=== PATIENT | female | born 1930 | race Caucasian/White ===

== ENCOUNTER 2017-07-03 18:24 | Inpatient (IN) | payer MEDICARE, OTHER ==
[~2017-07-03] VITALS: Ht 167.6 cm; Wt 77.9 kg
[2017-07-03] MEDS: PRAVASTATIN SOD 40 MG TAB PO SCH (09:00)
[~2017-07-03 18:24] MED LIST: AMOX200S8 PO; AUGM PO; CART180C4 PO; COUM5TAB PO; DILA2TAB4 PO; DIOV160T60 PO; FEMA2.5T PO; KLOR20TA6 PO; LEVEMIR SQ; METATAB; METO10TA PO; METR-1 PO; NADO1TAB16 PO; NOVOLOGP2 SQ; PREV30CA36 PO; SIMV20 PO; TRIA37.512 PO
[2017-07-03 18:29] VITALS: TEMP 97.5
[2017-07-03 18:37] VITALS: BP 131/97; PULSE 107; RESP 20; O2SAT 97
[2017-07-03] MEDS ORDERED: WARF-23 PO (18:44)
[2017-07-03] MEDS ORDERED: NOVOLOGP2 SQ (18:44)
[2017-07-03] MEDS ORDERED: DIOV160T6 PO (18:44)
--- NOTE | 2017-07-03 18:58 | PD ---
HPI Chief Complaint: Fall Time Seen by Provider: 18:55 Travel History International Travel<30 days: No Contact w/Intl Traveler<30days: No Traveled to known affect area: No History of Present Illness HPI 86-year-old female with history of CAD, pacemaker placement, AVR, diabetes, breast cancer in remission, presents to the emergency department for evaluation following a fall. Patient states that she tripped and fell at her home 2 days ago. She struck her head. She has been on the floor for 2 days until her neighbors discovered her today when her niece a r collections rep had not been picked up. Patient reports severe right hip and thigh pain. She reports significant neck pain. Pain is a 6 out of 10. She denies any focal deficits or weakness. She has not been recently ill. She denies any chest or tightness. No shortness of breath. No abdominal pain, nausea, vomiting. She has no other symptoms to report at this time. PFSH Past Medical History Cancer: Yes (BREAST) Diabetes: Yes Patient Takes Glucophage: No Diminished Hearing: No Gastrointestinal Disorders: Yes (ESOPHAGEAL BURN FROM RADIATION POST CANCER) Radiation Therapy: Yes Past Surgical History Cardiac Surgery: Yes (PACEMAKER, ARTIFICIAL AORTIC VALVE) Cholecystectomy: Yes (LAST WEEK) Endocrine Surgery: Yes (RIGHT LUMPECTOMY 2002) Pacemaker: Yes Social History Alcohol Use: No Tobacco Use: No Substance Use: No Allergies-Medications (Allergen,Severity, Reaction): Coded Allergies: oxycodone (Unverified Allergy, Severe, Rash, 01/06/17) phytonadione (vitamin K1) (Unverified Allergy, Severe, SOB FLUSH ALL OVER AND TIGHTNESS IN CHEST, 01/06/17) Reported Meds & Prescriptions Reported Meds & Active Scripts Active Reported Novolog Inj (Insulin Aspart) 1,000 Unit/10 Ml Vial 0 SQ DIRECTED Sliding Scale as directed. Diovan (Valsartan) 160 Mg Tab 160 Mg PO DAILY Warfarin 5 Mg Tab 5 Mg PO DAILY [Levemir] 44 Unit SQ HS [Levemir] 36 Unit SQ DAILY [Metanx] Review of Systems Except as stated in HPI: all other systems reviewed are Neg Physical Exam Narrative GENERAL: Well-nourished elderly female patient, lying in bed in no acute distress. SKIN: Focused skin assessment warm/dry. Most is over the mid anterior lateral thigh. There is also some ecchymosis across the abdomen. Patient has abrasion to the medial right knee. HEAD: Atraumatic. Normocephalic. EYES: Pupils equal and round. No scleral icterus. No injection or drainage. ENT: No nasal bleeding or discharge. Mucous membranes pink and dry NECK: Trachea midline. No JVD. Cervical collar is in place. CARDIOVASCULAR: Regular rate and rhythm. RESPIRATORY: No accessory muscle use. Diminished.. Breath sounds equal bilaterally. GASTROINTESTINAL: Abdomen soft, non-tender, nondistended. Hepatic and splenic margins not palpable. MUSCULOSKELETAL: No obvious deformities. No clubbing. No cyanosis. No edema. Shortening of the right lower extremity. Distal pulses are palpable. Cap refills within normal limits. No spinal tenderness. NEUROLOGICAL: Awake and alert. No obvious cranial nerve deficits. Motor grossly within normal limits. Normal speech. PSYCHIATRIC: Appropriate mood and affect; insight and judgment normal. Data Data Last Documented VS Vital Signs Date Time Temp Pulse Resp B/P (MAP) Pulse Ox O2 Delivery O2 Flow Rate FiO2 07/03/17 18:37 107 20 131/97 (108) 97 Room Air 07/03/17 18:29 97.5 Orders Orders Electrocardiogram (07/03/17 18:55) Basic Metabolic Panel (Bmp) (07/03/17 18:55) Ckmb (Isoenzyme) Profile (07/03/17 18:55) Complete Blood Count With Diff (07/03/17 18:55) Magnesium (Mg) (07/03/17 18:55) Prothrombin Time / Inr (Pt) (07/03/17 18:55) Act Partial Throm Time (Ptt) (07/03/17 18:55) Troponin I (07/03/17 18:55) Chest, Single Ap (07/03/17 18:55) Ecg Monitoring (07/03/17 18:55) Bilateral Bp Monitoring (07/03/17 18:55) Iv Access Insert/Monitor (07/03/17 18:55) Oximetry (07/03/17 18:55) Oxygen Administration (07/03/17 18:55) Morphine Inj (Morphine Inj) (07/03/17 19:00) Sodium Chloride 0.9% Flush (Ns Flush) (07/03/17 19:00) Sodium Chlorid 0.9% 500 Ml Inj (Ns 500 M (07/03/17 19:00) Ondansetron Inj (Zofran Inj) (07/03/17 19:00) Ct Brain W/O Iv Contrast(Rout) (07/03/17 ) Ct Cerv Spine W/O Contrast (07/03/17 ) Femur (Ap & Lat/2vws) (07/03/17 ) Creatine Kinase (Cpk) (07/03/17 18:55) Urinalysis - C+S If Indicated (07/03/17 19:06) Urinary Catheter Insert/Apply (07/03/17 19:06) Ct Hip W/O Contrast (07/03/17 ) Hip, Ap Only W Ap Pelvis (07/03/17 ) Acetaminophen 1000 Mg/100 Ml (Ofirmev 10 (07/03/17 20:00) CKMB (07/03/17 18:55) CKMB% (07/03/17 18:55) Ceftriaxone Inj (Rocephin Inj) (07/03/17 20:30) Azithromycin Inj (Zithromax Inj) (07/03/17 20:30) Ns (Bolus) Inj (07/03/17 20:30) Labs Laboratory Tests Test 07/03/17 18:55 White Blood Count 13.6 TH/MM3 Red Blood Count 3.74 MIL/MM3 Hemoglobin 11.2 GM/DL Hematocrit 32.8 % Mean Corpuscular Volume 87.7 FL Mean Corpuscular Hemoglobin 29.8 PG Mean Corpuscular Hemoglobin Concent 34.0 % Red Cell Distribution Width 16.5 % Platelet Count 149 TH/MM3 Mean Platelet Volume 8.8 FL Neutrophils (%) (Auto) 79.3 % Lymphocytes (%) (Auto) 8.2 % Monocytes (%) (Auto) 12.2 % Eosinophils (%) (Auto) 0.1 % Basophils (%) (Auto) 0.2 % Neutrophils # (Auto) 10.8 TH/MM3 Lymphocytes # (Auto) 1.1 TH/MM3 Monocytes # (Auto) 1.7 TH/MM3 Eosinophils # (Auto) 0.0 TH/MM3 Basophils # (Auto) 0.0 TH/MM3 CBC Comment DIFF FINAL Differential Comment Prothrombin Time 13.6 SEC Prothromb Time International Ratio 1.3 RATIO Activated Partial Thromboplast Time 25.6 SEC Blood Urea Nitrogen 25 MG/DL Creatinine 0.89 MG/DL Random Glucose 174 MG/DL Calcium Level 9.5 MG/DL Magnesium Level 2.2 MG/DL Sodium Level 142 MEQ/L Potassium Level 3.5 MEQ/L Chloride Level 105 MEQ/L Carbon Dioxide Level 29.0 MEQ/L Anion Gap 8 MEQ/L Estimat Glomerular Filtration Rate 60 ML/MIN Total Creatine Kinase 246 U/L Creatine Kinase MB 3.0 NG/ML Creatine Kinase MB % 1.2 % Troponin I LESS THAN 0.02 NG/ML MDM Medical Decision Making Medical Screen Exam Complete: Yes Emergency Medical Condition: Yes Medical Record Reviewed: Yes Differential Diagnosis Fracture versus contusion versus sprain versus dislocation versus electrolyte abnormality versus intracranial hemorrhage versus rhabdo Narrative Course 86 old female presents to emergency department following a trip and fall that occurred 2 days ago. The patient has laid on her floor for the last 2 days. She appears nontoxic but dry. Her lips are crusted. She has bruising of the right thigh with shortening of the right lower extremity. She reports severe hip and neck pain. Patient is treated for pain but requests only Tylenol. This is given IV. Patient has urine all over her body. Her skin remains intact on the buttocks and back. Patient is given IV fluids. Laboratory Tests Test 07/03/17 18:55 White Blood Count 13.6 TH/MM3 Red Blood Count 3.74 MIL/MM3 Hemoglobin 11.2 GM/DL Hematocrit 32.8 % Mean Corpuscular Volume 87.7 FL Mean Corpuscular Hemoglobin 29.8 PG Mean Corpuscular Hemoglobin Concent 34.0 % Red Cell Distribution Width 16.5 % Platelet Count 149 TH/MM3 Mean Platelet Volume 8.8 FL Neutrophils (%) (Auto) 79.3 % Lymphocytes (%) (Auto) 8.2 % Monocytes (%) (Auto) 12.2 % Eosinophils (%) (Auto) 0.1 % Basophils (%) (Auto) 0.2 % Neutrophils # (Auto) 10.8 TH/MM3 Lymphocytes # (Auto) 1.1 TH/MM3 Monocytes # (Auto) 1.7 TH/MM3 Eosinophils # (Auto) 0.0 TH/MM3 Basophils # (Auto) 0.0 TH/MM3 CBC Comment DIFF FINAL Differential Comment Prothrombin Time 13.6 SEC Prothromb Time International Ratio 1.3 RATIO Activated Partial Thromboplast Time 25.6 SEC Blood Urea Nitrogen 25 MG/DL Creatinine 0.89 MG/DL Random Glucose 174 MG/DL Calcium Level 9.5 MG/DL Magnesium Level 2.2 MG/DL Sodium Level 142 MEQ/L Potassium Level 3.5 MEQ/L Chloride Level 105 MEQ/L Carbon Dioxide Level 29.0 MEQ/L Anion Gap 8 MEQ/L Estimat Glomerular Filtration Rate 60 ML/MIN Total Creatine Kinase 246 U/L Creatine Kinase MB 3.0 NG/ML Creatine Kinase MB % 1.2 % Troponin I LESS THAN 0.02 NG/ML Last Impressions Chest X-Ray 07/03/175 Signed Impressions: Service Date/Time: Monday, July 03, 2017 19:17 - CONCLUSION: 1. There appears to be an infiltrate in the left lower lung. Chronic interstitial changes are seen bilaterally 2. Diffuse cardiomegaly 3. Prominence of the ascending thoracic aorta. Recommend a noncontrast CT thorax on a nonemergent basis. Vasiliy Baez MD Lower Extremity CT 07/03/17 0000 Signed Impressions: Service Date/Time: Monday, July 03, 2017 19:36 - CONCLUSION: Comminuted fracture through the trochanteric region of the proximal right femur. Vasiliy Baez MD Hip and Pelvis X-Ray 07/03/17 0000 Signed Impressions: Service Date/Time: Monday, July 03, 2017 19:10 - CONCLUSION: There is oblique fracture through the trochanter region of the right femur along with a fracture involving the lesser trochanter. Vasiliy Baez MD Head CT 07/03/17 0000 Signed Impressions: Service Date/Time: Monday, July 03, 2017 19:31 - CONCLUSION: 1. No acute intracranial hemorrhage. 2. Bilateral cortical atrophy and chronic white matter changes characteristic for patient's age. Vasiliy Baez MD Femur X-Ray 07/03/17 0000 Signed Impressions: Service Date/Time: Monday, July 03, 2017 19:16 - CONCLUSION: Oblique fracture involving the trochanteric region of the proximal right femur. Vasiliy Baez MD Cervical Spine CT 07/03/17 0000 Signed Impressions: Service Date/Time: Monday, July 03, 2017 19:31 - CONCLUSION: 1. Nondisplaced fracture at the base of the dens with extension of the fracture into the left body of C2 and into the left transverse process of C2. 2. Diffuse osteopenia and degenerative changes with disc degeneration and disc space narrowing throughout the entire cervical spine. Vasiliy Baez MD Findings are reviewed. I have placed a call to neurosurgery and orthopedic surgery. Patient is given IV Rocephin and azithromycin for her left lower lobe infiltrate. Diagnosis Primary Impression: Cervical spine fracture Qualified Codes: S12.001A - Unspecified nondisplaced fracture of first cervical vertebra, initial encounter for closed fracture Additional Impressions: Closed right hip fracture Qualified Codes: S72.001A - Fracture of unspecified part of neck of right femur, initial encounter for closed fracture Pneumonia Qualified Codes: J18.1 - Lobar pneumonia, unspecified organism Dehydration Fall Qualified Codes: W19.XXXA - Unspecified fall, initial encounter Admitting Information Admitting Physician Requests: Admit Condition: Stable Mary Kate Cochran Jul 03, 2017 18:58
[2017-07-03] MEDS ORDERED: ONDANSETRON HCL 4 MG/2 ML VIAL IV PUSH ONE (19:00)
[2017-07-03] MEDS ORDERED: SODIUM CHLORID 0.9% 500 ML INJ 500 ML IV ONE ×2 (19:00→20:30)
[2017-07-03] MEDS ORDERED: MORPHINE SULFATE 4 MG/ML INJ IV PUSH ONE (19:00)
[2017-07-03] MEDS ORDERED: SODIUM CHLORIDE 0.9% FLUSH 10 ML FLUSH IVF PRN (19:00)
[2017-07-03 19:39] LABS: AUTOMATED NEUTROPHIL # 10.8 TH/MM3 (1.8-7.7); BASOPHIL % 0.2 % (0.0-2.0); EOSINOPHIL % 0.1 % (0.0-4.0); HEMATOCRIT 32.8 % (35.0-46.0); HEMOGLOBIN 11.2 GM/DL (11.6-15.3); LYMPH % 8.2 % (9.0-44.0); LYMPHOCYTE # 1.1 TH/MM3 (1.0-4.8); MEAN CELL VOLUME 87.7 FL (80.0-100.0); MEAN CORPUSCULAR HEMOGLOBIN 29.8 PG (27.0-34.0); MEAN PLATELET VOLUME 8.8 FL (7.0-11.0); MONO % 12.2 % (0.0-8.0); MONOCYTE # 1.7 TH/MM3 (0-0.9); NEUT % 79.3 % (16.0-70.0); PLATELET COUNT 149 TH/MM3 (150-450); RED BLOOD COUNT 3.74 MIL/MM3 (4.00-5.30); RED CELL DISTRIBUTION WIDTH 16.5 % (11.6-17.2); WHITE BLOOD COUNT 13.6 TH/MM3 (4.0-11.0)
[2017-07-03 19:42] LABS: INTERNATIONAL NORMALIZED RATIO 1.3 RATIO; PROTHROMBIN TIME - PATIENT 13.6 SEC (9.8-11.6)
--- NOTE | 2017-07-03 19:42 | RADRPT ---
EXAM DATE/TIME: 07/03/2017 19:31 [facility] COMPARISON: No previous studies available for comparison. INDICATIONS : Head pain due to fall. RADIATION DOSE: 69.15 CTDIvol (mGy) MEDICAL HISTORY : Cardiovascular disease. Diabetes mellitus type 2. SURGICAL HISTORY : Pacemaker. Cholecystectomy. ENCOUNTER: Initial ACUITY: 1 day PAIN SCALE: 10/10 LOCATION: Bilateral cranial TECHNIQUE: Multiple contiguous axial images were obtained of the head. Using automated exposure control and adj ustment of the mA and/or kV according to patient size, radiation dose was kept as low as reasonably a chievable to obtain optimal diagnostic quality images. DICOM format image data is available electro nically for review and comparison. FINDINGS: CEREBRUM: The ventricles are normal for age. There is bilateral cortical atrophy and chronic white matter calderon es. No evidence of midline shift, mass lesion, hemorrhage or acute infarction. No extra-axial fluid collections are seen. POSTERIOR FOSSA: The cerebellum and brainstem are intact. The 4th ventricle is midline. The cerebellopontine angle i s unremarkable. EXTRACRANIAL: The visualized portion of the orbits is intact. SKULL: The calvaria is intact. No evidence of skull fracture. CONCLUSION: 1. No acute intracranial hemorrhage. 2. Bilateral cortical atrophy and chronic white matter changes characteristic for patient's age. Vasiliy Baez MD on July 03, 2017 at 19:39 Board Certified Radiologist. This report was verified electronically.
[2017-07-03 19:48] LABS: BLOOD UREA NITROGEN 25 MG/DL (7-18); CALCIUM 9.5 MG/DL (8.5-10.1); CHLORIDE 105 MEQ/L (98-107); CREATININE 0.89 MG/DL (0.50-1.00); GLOMERULAR FILTRATION RATE 60 ML/MIN (>89); GLUCOSE,RANDOM 174 MG/DL (74-106); MAGNESIUM 2.2 MG/DL (1.5-2.5); SODIUM (NA) 142 MEQ/L (136-145)
[2017-07-03 19:52] LABS: TROPONIN I LESS THAN 0.02 NG/ML (0.02-0.05)
--- NOTE | 2017-07-03 19:53 | RADRPT ---
EXAM DATE/TIME: 07/03/2017 19:16 [facility] COMPARISON: No previous studies available for comparison. INDICATIONS : Right proximal femur pain post fall 2 days ago MEDICAL HISTORY : None. SURGICAL HISTORY : None. ENCOUNTER: Initial ACUITY: 2 days PAIN SCORE: 10/10 LOCATION: Right proximal femur FINDINGS: There is a fracture through the trochanteric region of the proximal right femur. There is a fracture involving the lesser trochanter. The midshaft and distal shaft of the femur is grossly intact. The fe moral head remains within the acetabulum. CONCLUSION: Oblique fracture involving the trochanteric region of the proximal right femur. Vasiliy Baez MD on July 03, 2017 at 19:50 Board Certified Radiologist. This report was verified electronically.
--- NOTE | 2017-07-03 19:53 | RADRPT ---
EXAM DATE/TIME: 07/03/2017 19:10 [facility] COMPARISON: No previous studies available for comparison. INDICATIONS : Right hip pain post fall 2 days ago MEDICAL HISTORY : None. SURGICAL HISTORY : None. ENCOUNTER: Initial ACUITY: 2 days PAIN SCORE: 10/10 LOCATION: Right hip FINDINGS: There is an oblique fracture through the trochanteric region of the right femur. The femoral head rem ains within the acetabulum. There is a fracture through the lesser trochanter. The fracture through t he trochanteric region is mildly angulated. CONCLUSION: There is oblique fracture through the trochanter region of the right femur along with a fracture invo lving the lesser trochanter. Vasiliy Baez MD on July 03, 2017 at 19:49 Board Certified Radiologist. This report was verified electronically.
--- NOTE | 2017-07-03 19:57 | RADRPT ---
EXAM DATE/TIME: 07/03/2017 19:17 [facility] COMPARISON: No previous studies available for comparison. INDICATIONS : Trauma to chest post fall 2 days ago MEDICAL HISTORY : Cardiovascular disease. Diabetes mellitus type 2. SURGICAL HISTORY : Pacemaker. ENCOUNTER: Initial ACUITY: 2 days PAIN SCORE: 0/10 LOCATION: Bilateral chest FINDINGS: A single view of the chest demonstrates a parenchymal changes in the left lung base. The right lung i s grossly clear. There does appear to be chronic interstitial lung markings bilaterally. The heart si ze is diffusely enlarged. There appears to be a heart valve in place. There appears to be some promin ence of the ascending thoracic aorta. There is a pacemaker overlying the left chest. There is no evid ence of pneumothorax. There are surgical clips in the right axilla. There are degenerative changes in volving the bony structures.. CONCLUSION: 1. There appears to be an infiltrate in the left lower lung. Chronic interstitial changes are seen bi laterally 2. Diffuse cardiomegaly 3. Prominence of the ascending thoracic aorta. Recommend a noncontrast CT thorax on a nonemergent bas is. Vasiliy Baez MD on July 03, 2017 at 19:51 Board Certified Radiologist. This report was verified electronically.
[2017-07-03] MEDS ORDERED: ACETAMINOPHEN 1000 MG/100 ML 65 ML IV ONE (20:00)
--- NOTE | 2017-07-03 20:03 | RADRPT ---
EXAM DATE/TIME: 07/03/2017 19:31 [facility] COMPARISON: No previous studies available for comparison. INDICATIONS : Neck pain due to fall. RADIATION DOSE: 30.66 CTDIvol (mGy) MEDICAL HISTORY : Diabetes mellitus type 2. Cardiovascular disease SURGICAL HISTORY : Cholecystectomy. Pacemaker. ENCOUNTER: Initial ACUITY: 1 day PAIN SCALE: 10/10 LOCATION: Bilateral neck region. TECHNIQUE: Volumetric scanning of the cervical spine was performed. Multiplanar reconstructions in the sagittal, coronal and oblique axial planes were performed. Using automated exposure control and adjustment o f the mA and/or kV according to patient size, radiation dose was kept as low as reasonably achievable to obtain optimal diagnostic quality images. DICOM format image data is available electronically f or review and comparison. FINDINGS: VERTEBRAE: There is a nondisplaced fracture involving the base of the dens. The fracture line extends into the l eft body of C2 and the left transverse process at C2. There is diffuse osteopenia and degenerative ch anges throughout the entire cervical spine. There is disc degeneration and disc space narrowing at al l the levels. The rest of the bony structures appear to be grossly intact. ALIGNMENT: No evidence of subluxation. C2-C3: The bony spinal canal is normal in size. No evidence of disc bulge or herniation. The neural forami na are bilaterally patent. C3-C4: The bony spinal canal is normal in size. No evidence of disc bulge or herniation. The neural forami na are bilaterally patent. Bilateral facet arthritis. C4-C5: The bony spinal canal is normal in size. No evidence of disc bulge or herniation. The neural forami na are bilaterally patent. Bilateral facet arthritis. C5-C6: Mild broad-based bulging with disc osteophyte complex. The neuroforamina appear patent. C6-C7: Mild broad-based bulging disc osteophyte complex. The neural foramina appear patent C7-T1: The bony spinal canal is normal in size. No evidence of disc bulge or herniation. The neural forami na are bilaterally patent. CONCLUSION: 1. Nondisplaced fracture at the base of the dens with extension of the fracture into the left body of C2 and into the left transverse process of C2. 2. Diffuse osteopenia and degenerative changes with disc degeneration and disc space narrowing throug hout the entire cervical spine. Vasiliy Baez MD on July 03, 2017 at 19:55 Board Certified Radiologist. This report was verified electronically.
--- NOTE | 2017-07-03 20:06 | RADRPT ---
EXAM DATE/TIME: 07/03/2017 19:36 [facility] COMPARISON: No previous studies available for comparison. INDICATIONS : Right hip pain due to fall. RADIATION DOSE: 49.32 CTDIvol (mGy) MEDICAL HISTORY : Cardiovascular disease. Diabetes mellitus type 2. Carcinoma, breast. SURGICAL HISTORY : Pacemaker. Cholecystectomy. ENCOUNTER: Initial ACUITY: 1 day PAIN SCALE: 10/10 LOCATION: Right hip TECHNIQUE: Volumetric scanning of the hip was performed. Using automated exposure control and adjustment of the mA and/or kV according to patient size, radiation dose was kept as low as reasonably achievable to o btain optimal diagnostic quality images. DICOM format image data is available electronically for rev iew and comparison. FINDINGS: BONES: There is a comminuted fracture through the trochanteric region of the proximal right femur. There are fractures of the greater lesser trochanter. The femoral head remains within the acetabulum. The bony structures of the pelvis which are visualized are grossly intact. The acetabulum is grossly intact. JOINTS: No evidence of joint dislocation. SOFT TISSUES: There is soft tissue swelling adjacent to the fracture involving the proximal right femur. CONCLUSION: Comminuted fracture through the trochanteric region of the proximal right femur. Vasiliy Baez MD on July 03, 2017 at 20:02 Board Certified Radiologist. This report was verified electronically.
[2017-07-03] MEDS ORDERED: AZITHROMYCIN INJ 500 MG in SODIUM CHLOR 0.9% 250 ML INJ 250 ML IV ONE (20:30)
[2017-07-03] MEDS ORDERED: cefTRIAXone INJ 1,000 MG in SODIUM CHLORIDE 0.9% INJ 100 ML IV ONE (20:30)
[2017-07-03] MEDS ORDERED: LETR2.5T PO (21:09)
[2017-07-03] MEDS ORDERED: TRIA37.5 PO (21:09)
[2017-07-03] MEDS ORDERED: MULTTAB67 PO (21:09)
[2017-07-03] MEDS ORDERED: OCUVTAB4 PO (21:09)
[2017-07-03] MEDS ORDERED: DILT1CAP3 PO (21:09)
[2017-07-03] MEDS ORDERED: POTA-163 PO (21:09)
[2017-07-03] MEDS ORDERED: SIMV20TA PO (21:09)
[2017-07-03] MEDS ORDERED: LEVEMIR SQ (21:09)
[2017-07-03] MEDS ORDERED: PRIL20TA2 PO (21:09)
[2017-07-03] MEDS ORDERED: VITATAB11 PO (21:09)
[2017-07-03] MEDS ORDERED: FURO1TAB62 PO (21:09)
[2017-07-03] MEDS ORDERED: CALC600T4 PO (21:09)
[2017-07-03] MEDS ORDERED: MORPHINE SULFATE 2 MG/ML INJ IV PUSH ONE (21:15)
[2017-07-03 21:40] LABS: BACTERIA, URINE MANY /hpf; BILIRUBIN, URINE NEG (NEG); BLOOD, URINE LARGE (NEG); GLUCOSE,URINE NEG (NEG); KETONE, URINE 10 mg/dL (NEG); MUCUS URINE FEW /lpf (OCC); NITRITE,URINE NEG (NEG); URINE COLOR YELLOW (YELLW/STRAW); URINE LEUKOCYTE ESTERASE LARGE (NEG); WHITE BLOOD CELL CLUMPS MOD
--- NOTE | 2017-07-03 21:54 | HHI.HP ---
[facility] [place] Physician Del Mckeon M.D. Admission Diagnosis C1/C2 FX; R HIP FX; PNA; S/P FALL Diagnoses: (1) Fall Diagnosis: Principal (2) Closed right hip fracture Diagnosis: Principal (3) Cervical spine fracture Diagnosis: Principal (4) PNA (pneumonia) Diagnosis: Principal (5) Dehydration Diagnosis: Principal (6) UTI (urinary tract infection) Diagnosis: Principal (7) DM (diabetes mellitus) Diagnosis: Principal Travel History International Travel<30 Days: No Contact w/Intl Traveler <30 Da: No Traveled to Known Affected Are: No History of Present Illness This is an 86-year-old female with a PMH of HTN, CAD, Breast CA, AVR on Coumadin and DM who was brought to the ER by EMS after being found down in her apartment. Per pt she was standing between the couch and and table catapulted on a pair of shorts on Thursday evening (2 nights ago) when she got tangled in her shorts and fell. Reports head trauma against side table. No LOC. Immediate c/o right hip and neck pain pain following fall, pain is constant, 10/ 10, non-radiating, worse w/ movement. States she "wiggled' her way across the living room to get to her cell phone but was unable to. Neighbors went to check on her today and found her lying on the floor covered in urine. On arrival, BP 131/97, HR 107, O2 sat 97% on RA, Afebrile. W WBC 13.6. Platelets 149. BUN 25. GFR 60. CPK 246. Troponin negative. INR 1.3. UA positive for UTI. CXR with infiltrate left lower lung. CT Head with no acute findings. CT C-spine with acute nondisplaced fracture at the base of the dens with extension into left body of C2 and transverse process of C2. Dr. Palencia consulted, recommended collar, no emergent surgical intervention. Femur X-ray with oblique fracture involving trochanteric region of proximal right femur. Hip/ Pelvis X-ray with oblique fracture right femur. CT LE with comminuted fracture through trochanteric region of proximal right femur. Dr. Chavez consulted, plan is for surgical intervention. Review of Systems Except as stated in HPI: all other systems reviewed are Neg ROS: 14 point review of systems otherwise negative. Past Family Social History Past Medical History PMH: HTN, CAD, Breast CA, AVR on Coumadin and DM Past Surgical History PAST SURGICAL HISTORY: Pacemaker, Aortic Valve Replacement, Cholecystectomy, Right Lumpectomy Allergies: Coded Allergies: oxycodone (Unverified Allergy, Severe, Rash, 01/06/17) phytonadione (vitamin K1) (Unverified Allergy, Severe, SOB FLUSH ALL OVER AND TIGHTNESS IN CHEST, 01/06/17) Family History PAST FAMILY HISTORY: Reviewed. No h/o DM or CAD Social History PAST SOCIAL HISTORY: Negative for alcohol, tobacco or drugs. Physical Exam Vital Signs Vital Signs Date Time Temp Pulse Resp B/P (MAP) Pulse Ox O2 Delivery O2 Flow Rate FiO2 07/03/17 18:37 107 20 131/97 (108) 97 Room Air 07/03/17 18:34 89 20 07/03/17 18:29 97.5 Physical Exam PE: GENERAL: Very pleasant elderly white female in no acute distress. C-collar in place. HEENT: PERRLA, EOMI. No scleral icterus or conjunctival pallor. No lid lag or facial droop. Dry mucous membranes, lips dry/cracked. CARDIOVASCULAR: Regular rate and rhythm. No obvious murmurs to auscultation. No chest tenderness to palpation. RESPIRATORY: No obvious rhonchi or wheezing. Clear to auscultation. Breath sounds equal bilaterally. GASTROINTESTINAL: Abdomen soft, non-tender, nondistended. BS normal. MUSCULOSKELETAL: Extremities without clubbing, cyanosis, or edema. No obvious deformities. Decreased ROM of RLE due to injury. Pulses intact. NEUROLOGICAL: Awake, alert and oriented x4. No focal neurologic deficits. Moving both upper and lower extremities spontaneously. Laboratory Laboratory Tests Test 07/03/17 18:55 07/03/17 21:15 White Blood Count 13.6 Red Blood Count 3.74 Hemoglobin 11.2 Hematocrit 32.8 Mean Corpuscular Volume 87.7 Mean Corpuscular Hemoglobin 29.8 Mean Corpuscular Hemoglobin Concent 34.0 Red Cell Distribution Width 16.5 Platelet Count 149 Mean Platelet Volume 8.8 Neutrophils (%) (Auto) 79.3 Lymphocytes (%) (Auto) 8.2 Monocytes (%) (Auto) 12.2 Eosinophils (%) (Auto) 0.1 Basophils (%) (Auto) 0.2 Neutrophils # (Auto) 10.8 Lymphocytes # (Auto) 1.1 Monocytes # (Auto) 1.7 Eosinophils # (Auto) 0.0 Basophils # (Auto) 0.0 CBC Comment DIFF FINAL Differential Comment Prothrombin Time 13.6 Prothromb Time International Ratio 1.3 Activated Partial Thromboplast Time 25.6 Blood Urea Nitrogen 25 Creatinine 0.89 Random Glucose 174 Calcium Level 9.5 Magnesium Level 2.2 Sodium Level 142 Potassium Level 3.5 Chloride Level 105 Carbon Dioxide Level 29.0 Anion Gap 8 Estimat Glomerular Filtration Rate 60 Total Creatine Kinase 246 Creatine Kinase MB 3.0 Creatine Kinase MB % 1.2 Troponin I LESS THAN 0.02 Urine Color YELLOW Urine Turbidity CLOUDY Urine pH 8.0 Urine Specific [place] 1.020 Urine Protein 300 Urine Glucose (UA) NEG Urine Ketones 10 Urine Occult Blood LARGE Urine Nitrite NEG Urine Bilirubin NEG Urine Urobilinogen LESS THAN 2.0 Urine Leukocyte Esterase LARGE Urine RBC 49 Urine WBC Urine WBC Clumps MOD Urine Bacteria MANY Urine Mucus FEW Microscopic Urinalysis Comment CATH-CULTURE IND Date/Time Source Procedure Growth Status 07/03/17 21:15 Urine Clean Catch Urine Culture Pending Received Result Diagram: 07/03/17185407/03/171854 Caprini VTE Risk Assessment Caprini VTE Risk Assessment: Mod/High Risk (score >= 2) Caprini Risk Assessment Model Point Value = 1 Point Value = 2 Point Value = 3 Point Value = 5 Age 41-60 Minor surgery BMI > 25 kg/m2 Swollen legs Varicose veins or History of unexplained or recurrent spontaneous Oral contraceptives or hormone replacement Sepsis (< 1 month) Serious lung disease, including pneumonia (< 1 month) Abnormal pulmonary function Acute myocardial infarction Congestive heart failure (< 1 month) History of inflammatory bowel disease Medical patient at bed rest Age 61-74 Arthroscopic surgery Major open surgery (> 45 min) Laparoscopic surgery (> 45 min) Malignancy Confined to bed (> 72 hours) Immobilizing plaster cast Central venous access Age >= 75 History of VTE Family history of VTE Factor V Leiden Prothrombin [id number] Lupus anticoagulant Anticardiolipin antibodies Elevated serum homocysteine Heparin-induced thrombocytopenia Other congenital or acquired thrombophilia Stroke (< 1 month) Elective arthroplasty Hip, pelvis, or leg fracture Acute spinal cord injury (< 1 month) Prophylaxis Regimen Total Risk Factor Score Risk Level Prophylaxis Regimen 0-1 Low Early ambulation 2 Moderate Order ONE of the following: *Sequential Compression Device (SCD) *Heparin 5000 units SQ BID 3-4 Higher Order ONE of the following medications: *Heparin 5000 units SQ TID *Enoxaparin/Lovenox 40 mg SQ daily (WT < 150 kg, CrCl > 30 mL/min) *Enoxaparin/Lovenox 30 mg SQ daily (WT < 150 kg, CrCl > 10-29 mL/min) *Enoxaparin/Lovenox 30 mg SQ BID (WT < 150 kg, CrCl > 30 mL/min) AND/OR *Sequential Compression Device (SCD) 5 or more Highest Order ONE of the following medications: *Heparin 5000 units SQ TID (Preferred with Epidurals) *Enoxaparin/Lovenox 40 mg SQ daily (WT < 150 kg, CrCl > 30 mL/min) *Enoxaparin/Lovenox 30 mg SQ daily (WT < 150 kg, CrCl > 10-29 mL/min) *Enoxaparin/Lovenox 30 mg SQ BID (WT < 150 kg, CrCl > 30 mL/min) AND *Sequential Compression Device (SCD) Assessment and Plan Problem List: (1) Fall ICD Code: W19.XXXA - Unspecified fall, initial encounter Status: Acute (2) Closed right hip fracture ICD Code: S72.001A - Fracture of unspecified part of neck of right femur, initial encounter for closed fracture Status: Acute (3) Cervical spine fracture ICD Code: S12.9XXA - Fracture of neck, unspecified, initial encounter Status: Acute (4) PNA (pneumonia) ICD Code: J18.9 - Pneumonia, unspecified organism (5) UTI (urinary tract infection) ICD Code: N39.0 - Urinary tract infection, site not specified (6) Dehydration ICD Code: E86.0 - Dehydration Status: Acute (7) DM (diabetes mellitus) ICD Code: E11.9 - Type 2 diabetes mellitus without complications Assessment and Plan A/P: 1. Fall: s/p mechanical trip and fall w/ prolonged immobilization, +head trauma, no LOC. c/o neck/hip pain secondary to injury, analgesics/antiemetics as needed. PT for eval/tx 2. Right Femur Fx: secondary to above, Hip/Pelvis X-ray w/ oblique fracture through trochanter of the right femur along with fracture of lesser trochanter, CT LE with comminuted fracture through trochanter region of proximal right femur , images reviewed by me. Dr. Chavez consulted by ER physician, plan is for surgical intervention on this cervical spine cleared by neurosurgery. NPO, IVF , analgesics/antiemetics as needed. Hold Coumadin. 3. C-Spine Fx: secondary to fall w/ head trauma. CT Head w/ no acute findings , CT C-spine w/ nondisplaced fracture at the base of the dens with extension fracture into the left body of C2 and transverse process of C2, images reviewed by me. Dr. Garcia consulted, recommended C-collar, currently in place, no emergent surgical indication. Pending eval for c-spine clearance prior to surgical intervention. 4. PNA: CXR w/ LLL infiltrate, images reviewed by me. S/p Rocephin/Zithro, continue w/ IV Abx, DuoNeb prn if needed. 5. UTI: U/a w/ UTI, will start IV Abx for coverage, IVF for hydration, follow up urine cultures. 6. Dehydration: secondary to UTI w/ prolonged immobilization from fall, BUN 25 , previously 8 on 06/02/07. IVF for hydration, repeat labs in a.m. 7. DM: Sliding scale w/ Accu-Cheks 8. DVT Prophylaxis: anticoagulation post op per Ortho 9. Social work for d/c planning as needed. 10. Case discussed at length w/ ER physician, labs/records/imaging reviewed by me. Physician Certification 2 Midnight Certification Type: Admission for Inpatient Services Order for Inpatient Services The services are ordered in accordance with Medicare regulations or non- Medicare payer requirements, as applicable. In the case of services not specified as inpatient-only, they are appropriately provided as inpatient services in accordance with the 2-midnight benchmark. Estimated LOS (days): 2 days is the estimated time the patient will need to remain in the hospital, assuming treatment plan goals are met and no additional complications. Post-Hospital Plan: Not yet determined Problem Qualifiers (1) Fall: Qualified Codes: W19.XXXA - Unspecified fall, initial encounter (2) Closed right hip fracture: Qualified Codes: S72.001A - Fracture of unspecified part of neck of right femur , initial encounter for closed fracture (3) Cervical spine fracture: Qualified Codes: S12.001A - Unspecified nondisplaced fracture of first cervical vertebra, initial encounter for closed fracture Consuelo Betancur MD Jul 03, 2017 21:54
[2017-07-03] MEDS ORDERED: BISACODYL 10 MG SUPP RECTAL PRN (22:00)
[2017-07-03] MEDS ORDERED: MORPHINE SULFATE 2 MG/ML INJ IV PUSH PRN (22:00)
[2017-07-03] MEDS ORDERED: ONDANSETRON HCL 4 MG/2 ML VIAL IVP PRN (22:00)
[2017-07-03] MEDS ORDERED: SODIUM CHLORIDE 0.9% FLUSH 10 ML FLUSH IV FLUSH PRN (22:00)
[2017-07-03] MEDS ORDERED: DEXTROSE 50% IN WATER 50 ML VIAL(D50) IV PUSH PRN (22:00)
[2017-07-03] MEDS ORDERED: MAGNESIUM HYDROXIDE SUSP 30 ML CUP PO PRN (22:00)
[2017-07-03] MEDS ORDERED: LACTULOSE SYRUP 20 GM/30 ML CUP PO PRN (22:00)
[2017-07-03] MEDS ORDERED: SENNOSIDES 8.6 MG TAB PO PRN (22:00)
[2017-07-03] MEDS ORDERED: GLUCAGON 1 MG/ML VIAL OTHER PRN (22:00)
[2017-07-03] MEDS ORDERED: RESP: ALBUTEROL 2.5 MG/IPRATROPIUM 0.5 MG NEB (PRN) NEB (22:00)
[2017-07-03 22:31] VITALS: BP 149/65; PULSE 102; RESP 18; O2SAT 97
[2017-07-03] MEDS: SODIUM CHLOR 0.9% 1000 ML INJ 1,000 ML IV SCH (23:01)
[2017-07-04] VITALS (22 sets, daily range): BP systolic 116–148; BP diastolic 46–74; PULSE 75–114; RESP 17–22; TEMP 97.8–98.7; O2SAT 93–97
[2017-07-04] MEDS: MORPHINE SULFATE 2 MG/ML INJ IV PUSH PRN ×3 (02:07→22:43)
[2017-07-04] MEDS: SODIUM CHLOR 0.9% 1000 ML INJ 1,000 ML IV SCH ×3 (02:32→22:04)
[2017-07-04] MEDS: ACETAMINOPHEN 325 MG TAB PO PRN ×3 (06:58→18:39)
[2017-07-04 07:22] LABS: AUTOMATED NEUTROPHIL # 10.1 TH/MM3 (1.8-7.7); BASOPHIL % 0.2 % (0.0-2.0); HEMOGLOBIN 9.9 GM/DL (11.6-15.3); LYMPH % 11.7 % (9.0-44.0); LYMPHOCYTE # 1.5 TH/MM3 (1.0-4.8); MEAN CELL VOLUME 87.2 FL (80.0-100.0); MEAN CORPUSCULAR HEMOGLOBIN 29.7 PG (27.0-34.0); MEAN CORPUSCULAR HGB CONC 34.1 % (32.0-36.0); MEAN PLATELET VOLUME 9.1 FL (7.0-11.0); MONO % 11.2 % (0.0-8.0); MONOCYTE # 1.5 TH/MM3 (0-0.9); NEUT % 76.9 % (16.0-70.0); PLATELET COUNT 131 TH/MM3 (150-450); RED BLOOD COUNT 3.33 MIL/MM3 (4.00-5.30); RED CELL DISTRIBUTION WIDTH 16.4 % (11.6-17.2); WHITE BLOOD COUNT 13.1 TH/MM3 (4.0-11.0)
[2017-07-04 07:25] LABS: ALBUMIN 2.8 GM/DL (3.4-5.0); ALKALINE PHOSPHATASE 78 U/L (45-117); ALT (GPT) 32 U/L (10-53); AST (GOT) 39 U/L (15-37); BICARBONATE 26.3 MEQ/L (21.0-32.0); BLOOD UREA NITROGEN 27 MG/DL (7-18); CALCIUM 7.9 MG/DL (8.5-10.1); CHLORIDE 114 MEQ/L (98-107); CREATININE 0.75 MG/DL (0.50-1.00); GLOMERULAR FILTRATION RATE 73 ML/MIN (>89); GLUCOSE,RANDOM 157 MG/DL (74-106); SODIUM (NA) 147 MEQ/L (136-145); TOTAL BILIRUBIN ADULT 0.7 MG/DL (0.2-1.0); TOTAL PROTEIN 6.2 GM/DL (6.4-8.2)
--- NOTE | 2017-07-04 07:58 | PD.CONS ---
HPI Service Orthopedic Surgeons Consult Requested By Reason for Consult Right intertrochanteric femur fracture Primary Care Physician Del Mckoen M.D. Admission Diagnosis C1/C2 FX; R HIP FX; PNA; S/P FALL Diagnoses: (1) Fall Diagnosis: Secondary (2) Closed right hip fracture Diagnosis: Principal (3) Cervical spine fracture Diagnosis: Principal (4) PNA (pneumonia) Diagnosis: Secondary (5) UTI (urinary tract infection) Diagnosis: Secondary (6) Dehydration Diagnosis: Secondary (7) DM (diabetes mellitus) Diagnosis: Secondary Chief Complaint: Right hip pain History of Present Illness 86-year-old female with a PMH of HTN, CAD, Breast CA, AVR on Coumadin and DM who was brought to the ER by EMS after being found down in her apartment. Per pt she was standing between the couch and and table catapulted on a pair of shorts on Thursday evening (2 nights ago) when she got tangled in her shorts and fell. Reports head trauma against side table. No LOC. Immediate c/o right hip and neck pain pain following fall, pain is constant, 10/10, non- radiating, worse w/ movement. States she "wiggled' her way across the living room to get to her cell phone but was unable to. Neighbors went to check on her today and found her lying on the floor covered in urine. On arrival, BP 131 /97, HR 107, O2 sat 97% on RA, Afebrile. W WBC 13.6. Platelets 149. BUN 25. GFR 60. CPK 246. Troponin negative. INR 1.3. UA positive for UTI. CXR with infiltrate left lower lung. Patient found to have a C2 fracture along with a right intertrochanteric femur fracture Review of Systems Constitutional: DENIES: Fever Endocrine: DENIES: Polyuria Eyes: DENIES: Blurred vision Ears, nose, mouth, throat: DENIES: Throat pain Respiratory: DENIES: Cough Cardiovascular: DENIES: Chest pain Gastrointestinal: DENIES: Abdominal pain Genitourinary: DENIES: Urinary incontinence Musculoskeletal: COMPLAINS OF: Joint pain, Joint Swelling Integumentary: DENIES: Rash Hematologic/lymphatic: DENIES: Bruising Immunologic/allergic: DENIES: Eczema Neurologic: DENIES: Abnormal gait Psychiatric: DENIES: Anxiety Past Family Social History Past Medical History PMH: HTN, CAD, Breast CA, AVR on Coumadin and DM Past Surgical History PAST SURGICAL HISTORY: Pacemaker, Aortic Valve Replacement, Cholecystectomy, Right Lumpectomy Allergies: Coded Allergies: oxycodone (Unverified Allergy, Severe, Rash, 01/06/17) phytonadione (vitamin K1) (Unverified Allergy, Severe, SOB FLUSH ALL OVER AND TIGHTNESS IN CHEST, 01/06/17) Active Ordered Medications Current Medications Medications (Trade) Dose Ordered Sig/Samir Route Start Time Stop Time Status Last Admin (NS Flush) 2 ml UNSCH PRN IVF 07/03/17 19:00 (D50w (Vial) Inj) 50 ml UNSCH PRN IV PUSH 07/03/17 22:00 (Glucagon Inj) 1 mg UNSCH PRN OTHER 07/03/17 22:00 (NovoLOG SUPPLEMENTAL SCALE) 1 ACHS SLIDING SCALE SQ 07/04/17 08:00 Ceftriaxone Sodium 1000 mg/ Sodium Chloride 100 ml @ 200 mls/hr Q24H IV 07/04/17 22:00 Azithromycin 500 mg/Sodium Chloride 250 ml @ 250 mls/hr Q24H IV 07/04/17 23:00 (Duoneb Neb) 1 ampule Q4HR NEB PRN NEB 07/03/17 22:00 Sodium Chloride 1,000 ml @ 100 mls/hr Q10H IV 07/03/17 21:50 07/04/17 02:32 (NS Flush) 2 ml UNSCH PRN IV FLUSH 07/03/17 22:00 (NS Flush) 2 ml BID IV FLUSH 07/04/17 09:00 (Zofran Inj) 4 mg Q6H PRN IVP 07/03/17 22:00 07/04/17 02:31 (Tylenol) 650 mg Q6H PRN PO 07/03/17 22:00 07/04/17 06:58 (Morphine Inj) 1 mg Q3H PRN IV PUSH 07/03/17 22:00 07/04/17 02:07 (Morphine Inj) 2 mg Q3H PRN IV PUSH 07/03/17 22:00 (Yessi-Colace) 1 tab BID PO 07/04/17 09:00 (Milk Of Magnesia Liq) 30 ml Q12H PRN PO 07/03/17 22:00 (Senokot) 17.2 mg Q12H PRN PO 07/03/17 22:00 (Dulcolax Supp) 10 mg DAILY PRN RECTAL 07/03/17 22:00 (Lactulose Liq) 30 ml DAILY PRN PO 07/03/17 22:00 (Diovan) 160 mg DAILY PO 07/04/17 09:00 (Cardizem Cd) 180 mg DAILY PO 07/04/17 09:00 (Pravachol) 40 mg DAILY PO 07/03/17 09:00 Reported Meds & Active Scripts Active Reported Levemir Inj (Insulin Detemir) 1,000 unit/ 10 ML Vial 22-24 Units SQ HS Do not mix with any other Insulin. Multiple Vitamin 1 Tab 1 Tab PO DAILY Calcium Carbonate 1,500 Mg Tab 1,500 Mg PO DAILY 1,500 mg calcium carbonate (600 mg elemental calcium) Vitamin B Complex (B-Complex Vitamins) 1 Tab 1 Tab PO DAILY Preservision Areds (Multiple Vitamins W/ Minerals) 1 Tab 1 Tab PO BID Simvastatin 20 Mg Tab 20 Mg PO DAILY Potassium Chloride ER (Potassium Chloride) 20 Meq Tab 20 Meq PO DAILY Lasix (Furosemide) 20 Mg Tab 20 Mg PO DAILY Prilosec (Omeprazole Magnesium) 20 Mg Tab 20 Mg PO DAILY Triamterene-Hydrochlorothiazide 37.5-25 Mg Tab 1 Tab PO DAILY Diltiazem 24Hr ER (Diltiazem HCl) 180 Mg Cap.sa.24h 180 Mg PO DAILY Letrozole 2.5 Mg Tab 5 Mg PO DAILY Novolog Inj (Insulin Aspart) 1,000 Unit/10 Ml Vial 0 SQ DIRECTED Sliding Scale as directed. Diovan (Valsartan) 160 Mg Tab 160 Mg PO DAILY Warfarin 5 Mg Tab 5 Mg PO DAILY [Metanx] Family History PAST FAMILY HISTORY: Reviewed. No h/o DM or CAD Social History PAST SOCIAL HISTORY: Negative for alcohol, tobacco or drugs. Physical Exam Vital Signs Vital Signs Date Time Temp Pulse Resp B/P (MAP) Pulse Ox O2 Delivery O2 Flow Rate FiO2 07/04/17 05:44 102 07/04/17 05:00 100 07/04/17 04:00 98.4 111 20 144/47 (79) 95 07/04/17 04:00 102 07/04/17 03:00 94 07/04/17 02:00 100 07/04/17 01:00 97.8 103 22 148/49 (82) 97 07/04/17 01:00 98 07/04/17 00:53 07/04/17 00:26 98.3 96 18 132/60 (84) 97 Room Air 07/03/17 22:31 102 18 149/65 (93) 97 Room Air 07/03/17 18:37 107 20 131/97 (108) 97 Room Air 07/03/17 18:34 89 20 07/03/17 18:29 97.5 Physical Exam Awake, alert, no acute distress Normocephalic Pupils equal C-collar in place without appreciable JVD. Moist mucous membranes Nonlabored respirations Regular rate, tachycardic Soft nontender abdomen Right lower extremity: Positive logroll with mild tenderness about the hip. Unable to assess range of motion at hip and knee due to pain. Patient appears neurovascular intact distally with positive EHL, FHL, dorsiflexion and plantar flexion. Sensation intact. Brisk cap refill Bilateral upper extremities and left lower extremity: No tenderness palpation or visible deformities. Grossly intact distally. Sensation appears intact. Brisk cap refill. No rash Normal affect Laboratory Laboratory Tests Test 07/03/17 18:55 07/03/17 21:15 07/04/17 05:44 White Blood Count 13.6 13.1 Red Blood Count 3.74 3.33 Hemoglobin 11.2 9.9 Hematocrit 32.8 29.0 Mean Corpuscular Volume 87.7 87.2 Mean Corpuscular Hemoglobin 29.8 29.7 Mean Corpuscular Hemoglobin Concent 34.0 34.1 Red Cell Distribution Width 16.5 16.4 Platelet Count 149 131 Mean Platelet Volume 8.8 9.1 Neutrophils (%) (Auto) 79.3 76.9 Lymphocytes (%) (Auto) 8.2 11.7 Monocytes (%) (Auto) 12.2 11.2 Eosinophils (%) (Auto) 0.1 0.0 Basophils (%) (Auto) 0.2 0.2 Neutrophils # (Auto) 10.8 10.1 Lymphocytes # (Auto) 1.1 1.5 Monocytes # (Auto) 1.7 1.5 Eosinophils # (Auto) 0.0 0.0 Basophils # (Auto) 0.0 0.0 CBC Comment DIFF FINAL DIFF FINAL Differential Comment Prothrombin Time 13.6 Prothromb Time International Ratio 1.3 Activated Partial Thromboplast Time 25.6 Blood Urea Nitrogen 25 27 Creatinine 0.89 0.75 Random Glucose 174 157 Calcium Level 9.5 7.9 Magnesium Level 2.2 Sodium Level 142 147 Potassium Level 3.5 3.6 Chloride Level 105 114 Carbon Dioxide Level 29.0 26.3 Anion Gap 8 7 Estimat Glomerular Filtration Rate 60 73 Total Creatine Kinase 246 Creatine Kinase MB 3.0 Creatine Kinase MB % 1.2 Troponin I LESS THAN 0.02 Urine Color YELLOW Urine Turbidity CLOUDY Urine pH 8.0 Urine Specific [place] 1.020 Urine Protein 300 Urine Glucose (UA) NEG Urine Ketones 10 Urine Occult Blood LARGE Urine Nitrite NEG Urine Bilirubin NEG Urine Urobilinogen LESS THAN 2.0 Urine Leukocyte Esterase LARGE Urine RBC 49 Urine WBC Urine WBC Clumps MOD Urine Bacteria MANY Urine Mucus FEW Microscopic Urinalysis Comment CATH-CULTURE IND Total Protein 6.2 Albumin 2.8 Alkaline Phosphatase 78 Aspartate Amino Transf (AST/SGOT) 39 Alanine Aminotransferase (ALT/SGPT) 32 Total Bilirubin 0.7 Date/Time Source Procedure Growth Status 07/03/17 21:15 Urine Clean Catch Urine Culture Pending Received Result Diagram: 07/04/17 0544 07/04/17 0544 Imaging Last 48 hours Impressions Chest X-Ray 07/03/17 1855 Signed Impressions: Service Date/Time: Monday, July 03, 2017 19:17 - CONCLUSION: 1. There appears to be an infiltrate in the left lower lung. Chronic interstitial changes are seen bilaterally 2. Diffuse cardiomegaly 3. Prominence of the ascending thoracic aorta. Recommend a noncontrast CT thorax on a nonemergent basis. Vasiliy Baez MD Lower Extremity CT 07/03/17 0000 Signed Impressions: Service Date/Time: Monday, July 03, 2017 19:36 - CONCLUSION: Comminuted fracture through the trochanteric region of the proximal right femur. Vasiliy Baez MD Hip and Pelvis X-Ray 07/03/17 0000 Signed Impressions: Service Date/Time: Monday, July 03, 2017 19:10 - CONCLUSION: There is oblique fracture through the trochanter region of the right femur along with a fracture involving the lesser trochanter. Vasiliy Baez MD Head CT 07/03/17 0000 Signed Impressions: Service Date/Time: Monday, July 03, 2017 19:31 - CONCLUSION: 1. No acute intracranial hemorrhage. 2. Bilateral cortical atrophy and chronic white matter changes characteristic for patient's age. Vasiliy Baez MD Femur X-Ray 07/03/17 0000 Signed Impressions: Service Date/Time: Monday, July 03, 2017 19:16 - CONCLUSION: Oblique fracture involving the trochanteric region of the proximal right femur. Vasiliy Baez MD Cervical Spine CT 07/03/17 0000 Signed Impressions: Service Date/Time: Monday, July 03, 2017 19:31 - CONCLUSION: 1. Nondisplaced fracture at the base of the dens with extension of the fracture into the left body of C2 and into the left transverse process of C2. 2. Diffuse osteopenia and degenerative changes with disc degeneration and disc space narrowing throughout the entire cervical spine. Vasiliy Baez MD Last 24 hours Impressions Chest X-Ray 07/03/17 1855 Signed Impressions: Service Date/Time: Monday, July 03, 2017 19:17 - CONCLUSION: 1. There appears to be an infiltrate in the left lower lung. Chronic interstitial changes are seen bilaterally 2. Diffuse cardiomegaly 3. Prominence of the ascending thoracic aorta. Recommend a noncontrast CT thorax on a nonemergent basis. Vasiliy Baez MD Assessment & Plan Assessment and Plan 86 showed female with multiple medical problems including cardiac history with pacemaker and H0 valve replacement found to have a right intertrochanteric femur fracture along with C2 fracture. Options of management were discussed with the patient and her family members. Recommendation for intramedullary nail of her right femur fracture. Risks, benefits, alternatives were discussed. Risks of surgery including but not limited to: Infection, nonunion or malunion, hardware malposition or failure, neurovascular injury, possible need for further surgery, and other unforeseen complications were all discussed with the patient. At this time I discussed with the patient that she will require neurosurgical clearance for her's C- spine fracture along with cardiology clearance given her multiple cardiac issues. We'll keep her nothing by mouth at this time with plan for surgical intervention once patient is optimized and cleared. Adrianne Chavez MD Jul 04, 2017 07:58
[2017-07-04] MEDS: INSULIN ASPART SUPPLEMENTAL SCALE SQ SCH ×4 (08:24→21:05)
[2017-07-04] MEDS: SODIUM CHLORIDE 0.9% FLUSH 10 ML FLUSH IV FLUSH SCH ×2 (08:25→21:00)
[2017-07-04] MEDS: VALSARTAN 160 MG TAB PO SCH (09:47)
[2017-07-04] MEDS: PRAVASTATIN SOD 40 MG TAB PO SCH (09:47)
[2017-07-04] MEDS: DOCUSATE SODIUM 50 MG/SENNA 8.6 MG TAB PO SCH ×2 (09:47→21:00)
[2017-07-04] MEDS: DILTIAZEM-CD 180 MG CAP ER PO SCH (09:47)
--- NOTE | 2017-07-04 12:47 | HHI.PR ---
Subjective Remarks Patient's primary complaint today is dry mouth secondary to lack of by mouth intake. She still has a neurosurgery consult and cardiology consult pending for clearance for right hip surgery. At this point it does not seem likely that clearance will be obtained by today so patient is resume back on a diet. Pain is controlled. Objective Vital Signs Date Time Temp Pulse Resp B/P (MAP) Pulse Ox O2 Delivery O2 Flow Rate FiO2 07/04/17 07:55 18 07/04/17 05:44 102 07/04/17 05:00 100 07/04/17 04:00 98.4 111 20 144/47 (79) 95 07/04/17 04:00 102 07/04/17 03:00 94 07/04/17 02:00 100 07/04/17 01:00 97.8 103 22 148/49 (82) 97 07/04/17 01:00 98 07/04/17 00:53 07/04/17 00:26 98.3 96 18 132/60 (84) 97 Room Air 07/03/17 22:31 102 18 149/65 (93) 97 Room Air 07/03/17 18:37 107 20 131/97 (108) 97 Room Air 07/03/17 18:34 89 20 07/03/17 18:29 97.5 I/O 07/03/17 07/03/17 07/03/17 07/04/17 07/04/17 07/04/17 07:00 15:00 23:00 07:00 15:00 23:00 Intake Total 565 ml 850 ml Output Total 200 ml Balance 565 ml 650 ml Intake IV Total 565 ml 850 ml Output Urine Total 200 ml Result Diagram: 07/04/17 0544 07/04/17 0544 Objective Remarks GENERAL: NAD, A&Ox3 HEAD: Normocephalic. NECK: Supple, trachea midline. No lymphadenopathy. EYES: No scleral icterus. No injection or drainage. CARDIOVASCULAR: Regular rate and rhythm without murmurs, gallops, or rubs. RESPIRATORY: Breath sounds equal bilaterally. No accessory muscle use. GASTROINTESTINAL: Abdomen soft, non-tender, nondistended. MUSCULOSKELETAL: No cyanosis, or edema. C-collar is in place. Limited range of motion at right hip. SKIN: Warm and dry. NEURO: No focal neurological deficitis. A/P Problem List: (1) Closed right hip fracture ICD Code: S72.001A - Fracture of unspecified part of neck of right femur, initial encounter for closed fracture Status: Acute (2) Cervical spine fracture ICD Code: S12.9XXA - Fracture of neck, unspecified, initial encounter Status: Acute (3) UTI (urinary tract infection) ICD Code: N39.0 - Urinary tract infection, site not specified (4) PNA (pneumonia) ICD Code: J18.9 - Pneumonia, unspecified organism (5) DM (diabetes mellitus) ICD Code: E11.9 - Type 2 diabetes mellitus without complications Assessment and Plan 86-year-old female admitted secondary to falls which resulted in a C-spine fracture and right hip fracture. Pneumonia and urinary tract infection are present which may have been contributory to weakness and falls. Community acquired pneumonia Urinary tract infection Continue azithromycin Continue Rocephin Follow urine cultures Oxygen supplementation as needed Generalized weakness Likely secondary to infections Plan for physical therapy after surgical repairs Right femur fracture Surgical repair plan Orth O following Continue pain treatments as needed Bedrest for now C-spine fracture C1/C2 Neurosurgery consulted and following Dehydration Continue IV fluids Follow renal function Diabetes mellitus type 2 Follow blood sugars Insulin sliding scale Pure diet DVT prophylaxis Anticoagulation On hold preop in secondary to recent trauma SCDs Problem Qualifiers (1) Closed right hip fracture: Qualified Codes: S72.001A - Fracture of unspecified part of neck of right femur , initial encounter for closed fracture (2) Cervical spine fracture: Qualified Codes: S12.001A - Unspecified nondisplaced fracture of first cervical vertebra, initial encounter for closed fracture Orville Mead MD Jul 04, 2017 12:47
[2017-07-04] MEDS ORDERED: DIGOXIN 0.5 MG/2 ML VIAL IV PUSH ONE (13:45)
--- NOTE | 2017-07-04 14:43 | PD.CONS ---
History of Present Illness Service Neurosurgery Consult Requested By Medicine service Reason for Consult C2 fracture Primary Care Physician Del Mckeon M.D. Diagnoses: History of Present Illness The patient is a pleasant 86-year-old female who was admitted through the emergency room on 07/03/2017. She states that she fell a couple of days on 2017 before she was brought to the hospital. She states that she tripped at home, fell down between some furniture and was unable to move her right leg or get up. She remained on the floor for 2 days until she was brought to the emergency room. There was no definite loss of consciousness. She has no complaint of headache dizziness blurred vision and diplopia speech difficulty memory loss. She states that she usually has some trouble walking, largely due to problems with her right knee. She complains of mild neck pain. Mild paresthesias in the hands and feet which appear to be chronic secondary to diabetic neuropathy. She states she has some chronic burning sensation in the feet. She is on medication for this. Review of Systems Constitutional: COMPLAINS OF: Fatigue, DENIES: Fever, Dizziness Eyes: DENIES: Blurred vision, Diplopia Ears, nose, mouth, throat: COMPLAINS OF: Hearing loss, DENIES: Vertigo Respiratory: DENIES: Shortness of breath Cardiovascular: COMPLAINS OF: Chest pain Gastrointestinal: COMPLAINS OF: Abdominal pain, DENIES: Diarrhea, Nausea Musculoskeletal: COMPLAINS OF: Joint pain, Muscle aches, Neck pain, DENIES: Back pain Hematologic/lymphatic: COMPLAINS OF: Bruising Neurologic: COMPLAINS OF: Abnormal gait, DENIES: Headache Psychiatric: COMPLAINS OF: Confusion Past Family Social History Allergies: Coded Allergies: oxycodone (Unverified Allergy, Severe, Rash, 01/06/17) phytonadione (vitamin K1) (Unverified Allergy, Severe, SOB FLUSH ALL OVER AND TIGHTNESS IN CHEST, 01/06/17) Past Medical History History of breast cancer Hypertension Coronary artery disease Diabetes Past Surgical History Aortic valve replacement-on Coumadin Pacemaker Right breast lumpectomy Cholecystectomy Reported Medications Reported Meds & Active Scripts Active Reported Levemir Inj (Insulin Detemir) 1,000 unit/ 10 ML Vial 22-24 Units SQ HS Do not mix with any other Insulin. Multiple Vitamin 1 Tab 1 Tab PO DAILY Calcium Carbonate 1,500 Mg Tab 1,500 Mg PO DAILY 1,500 mg calcium carbonate (600 mg elemental calcium) Vitamin B Complex (B-Complex Vitamins) 1 Tab 1 Tab PO DAILY Preservision Areds (Multiple Vitamins W/ Minerals) 1 Tab 1 Tab PO BID Simvastatin 20 Mg Tab 20 Mg PO DAILY Potassium Chloride ER (Potassium Chloride) 20 Meq Tab 20 Meq PO DAILY Lasix (Furosemide) 20 Mg Tab 20 Mg PO DAILY Prilosec (Omeprazole Magnesium) 20 Mg Tab 20 Mg PO DAILY Triamterene-Hydrochlorothiazide 37.5-25 Mg Tab 1 Tab PO DAILY Diltiazem 24Hr ER (Diltiazem HCl) 180 Mg Cap.sa.24h 180 Mg PO DAILY Letrozole 2.5 Mg Tab 5 Mg PO DAILY Novolog Inj (Insulin Aspart) 1,000 Unit/10 Ml Vial 0 SQ DIRECTED Sliding Scale as directed. Diovan (Valsartan) 160 Mg Tab 160 Mg PO DAILY Warfarin 5 Mg Tab 5 Mg PO DAILY [Metanx] Family History Negative for neurologic disease, diabetes Social History Lives alone. Does not smoke cigarettes or drink alcohol Physical Exam Vital Signs Vital Signs Date Time Temp Pulse Resp B/P (MAP) Pulse Ox O2 Delivery O2 Flow Rate FiO2 07/04/17 13:45 18 07/04/17 05:44 102 07/04/17 05:00 100 07/04/17 04:00 98.4 111 20 144/47 (79) 95 07/04/17 04:00 102 07/04/17 03:00 94 07/04/17 02:00 100 07/04/17 01:00 97.8 103 22 148/49 (82) 97 07/04/17 01:00 98 07/04/17 00:53 07/04/17 00:26 98.3 96 18 132/60 (84) 97 Room Air 07/03/17 22:31 102 18 149/65 (93) 97 Room Air 07/03/17 18:37 107 20 131/97 (108) 97 Room Air 07/03/17 18:34 89 20 07/03/17 18:29 97.5 Physical Exam General: Pleasant well-developed lady in no apparent distress during the examination. She is lying in bed on her left side. Aspirations: Clear and regular Cardiac: Pulse regular Abdomen: Soft nontender Extremities: She is not moving her right hip due to fracture. Mild to moderate distal right lower extremity edema without cyanosis. Posterior tibial pulses 2 + bilateral No tenderness or discomfort with range of motion of the right and left shoulder elbow or wrist. No left lateral hip tenderness. No significant lower show varicosities. Skin: No significant skin lesion or rash HEENT: Positive dentures. Sclera clear and nonicteric. Head: Positive small laceration. Occipital region. Neurologic: Awake and alert oriented conversant and appropriate Her speech is clear Recent and remote memory appear reasonably intact Reasonable judgment and insight Answers questions appropriately and follows simple commands well Extraocular movements, visual jimenes to confrontation, facial sensory motor, tongue, palate, sternocleidomastoid testing are all intact. She has mild diminished hearing to finger rub on the right versus the left ear. Sensation is intact to light touch in the upper extremities except for complaint of mild paresthesias in the left greater than right fingertips. She states she has mild decreased sensation, paresthesias in both feet which is chronic. Her strength is within normal limits major flexion and extension health services coordinator and hand intrinsics in the upper extremities Strength is within normal limits in bilateral tibialis anterior and gastrocsoleus. Right lower extremity motor testing not fully tested due to fracture. Zachary's response absent bilateral. Laboratory Laboratory Tests Test 07/03/17 18:55 07/03/17 21:15 07/04/17 05:44 White Blood Count 13.6 13.1 Red Blood Count 3.74 3.33 Hemoglobin 11.2 9.9 Hematocrit 32.8 29.0 Mean Corpuscular Volume 87.7 87.2 Mean Corpuscular Hemoglobin 29.8 29.7 Mean Corpuscular Hemoglobin Concent 34.0 34.1 Red Cell Distribution Width 16.5 16.4 Platelet Count 149 131 Mean Platelet Volume 8.8 9.1 Neutrophils (%) (Auto) 79.3 76.9 Lymphocytes (%) (Auto) 8.2 11.7 Monocytes (%) (Auto) 12.2 11.2 Eosinophils (%) (Auto) 0.1 0.0 Basophils (%) (Auto) 0.2 0.2 Neutrophils # (Auto) 10.8 10.1 Lymphocytes # (Auto) 1.1 1.5 Monocytes # (Auto) 1.7 1.5 Eosinophils # (Auto) 0.0 0.0 Basophils # (Auto) 0.0 0.0 CBC Comment DIFF FINAL DIFF FINAL Differential Comment Prothrombin Time 13.6 Prothromb Time International Ratio 1.3 Activated Partial Thromboplast Time 25.6 Blood Urea Nitrogen 25 27 Creatinine 0.89 0.75 Random Glucose 174 157 Calcium Level 9.5 7.9 Magnesium Level 2.2 Sodium Level 142 147 Potassium Level 3.5 3.6 Chloride Level 105 114 Carbon Dioxide Level 29.0 26.3 Anion Gap 8 7 Estimat Glomerular Filtration Rate 60 73 Total Creatine Kinase 246 Creatine Kinase MB 3.0 Creatine Kinase MB % 1.2 Troponin I LESS THAN 0.02 Urine Color YELLOW Urine Turbidity CLOUDY Urine pH 8.0 Urine Specific [place] 1.020 Urine Protein 300 Urine Glucose (UA) NEG Urine Ketones 10 Urine Occult Blood LARGE Urine Nitrite NEG Urine Bilirubin NEG Urine Urobilinogen LESS THAN 2.0 Urine Leukocyte Esterase LARGE Urine RBC 49 Urine WBC Urine WBC Clumps MOD Urine Bacteria MANY Urine Mucus FEW Microscopic Urinalysis Comment CATH-CULTURE IND Total Protein 6.2 Albumin 2.8 Alkaline Phosphatase 78 Aspartate Amino Transf (AST/SGOT) 39 Alanine Aminotransferase (ALT/SGPT) 32 Total Bilirubin 0.7 Date/Time Source Procedure Growth Status 07/03/17 21:15 Urine Clean Catch Urine Culture Pending Received Result Diagram: 07/04/17 0544 07/04/17 0544 Imaging 07/03/2017 CT scan of the cervical spine and head images reviewed by the undersigned. Agree with findings as noted below: Chest X-Ray 07/03/17 4076 Signed Impressions: Service Date/Time: Monday, July 03, 2017 19:17 - CONCLUSION: 1. There appears to be an infiltrate in the left lower lung. Chronic interstitial changes are seen bilaterally 2. Diffuse cardiomegaly 3. Prominence of the ascending thoracic aorta. Recommend a noncontrast CT thorax on a nonemergent basis. Vasiliy Baez MD Lower Extremity CT 07/03/17 0000 Signed Impressions: Service Date/Time: Monday, July 03, 2017 19:36 - CONCLUSION: Comminuted fracture through the trochanteric region of the proximal right femur. Vasiliy Baez MD Hip and Pelvis X-Ray 07/03/17 0000 Signed Impressions: Service Date/Time: Monday, July 03, 2017 19:10 - CONCLUSION: There is oblique fracture through the trochanter region of the right femur along with a fracture involving the lesser trochanter. Vasiliy Baez MD Head CT 07/03/17 0000 Signed Impressions: Service Date/Time: Monday, July 03, 2017 19:31 - CONCLUSION: 1. No acute intracranial hemorrhage. 2. Bilateral cortical atrophy and chronic white matter changes characteristic for patient's age. Vasiliy Baez MD Femur X-Ray 07/03/17 0000 Signed Impressions: Service Date/Time: Monday, July 03, 2017 19:16 - CONCLUSION: Oblique fracture involving the trochanteric region of the proximal right femur. Vasiliy Baez MD Cervical Spine CT 07/03/17 0000 Signed Impressions: Service Date/Time: Monday, July 03, 2017 19:31 - CONCLUSION: 1. Nondisplaced fracture at the base of the dens with extension of the fracture into the left body of C2 and into the left transverse process of C2. 2. Diffuse osteopenia and degenerative changes with disc degeneration and disc space narrowing throughout the entire cervical spine. Vasiliy Baez MD Assessment and Plan Assessment and Plan Impression: 1. Nondisplaced type II C2 fracture extending primarily along the left C2 vertebral body root towards the lateral mass and foramen transversarium. Recommendations: Findings were discussed with the patient as well as with her family in the room. Conservative treatment in the [place] collar is recommended at this time. She may proceed with surgical intervention for the right hip fracture with avoidance of cervical spine manipulation during intubation and positioning. Her activity may be advanced according to orthopedic surgery recommendations. She may be out of bed in the cervical collar from a neurosurgical standpoint. A follow-up cervical spine x-ray will be obtained in 7-10 days. She appears neurologically stable at this time. I answered all the family and patient questions. Christian Garcia MD Jul 04, 2017 14:43
--- NOTE | 2017-07-04 15:08 | MB ---
cc: URBANO REEVES M.D. DATE OF CONSULTATION: 07/04/2017. REASON FOR CONSULTATION: Hip fracture. Syncopal episode. HISTORY OF PRESENT ILLNESS: Ms. Mcdonough is an 80-year-old female with history of high blood pressure, coronary artery disease, breast cancer, diabetes mellitus on anticoagulation, aortic valve replacement, TAVR and episode of dizziness. She has a previous permanent pacemaker inserted. She was at home and tried to put a pair of short on and lost her equilibrium and fell on the floor. She denies head trauma or any fracture. She was admitted. I was consulted for further evaluation and management. The chart was reviewed. The patient was evaluated. ALLERGIES: OXYCODONE. VITAMIN K. SOCIAL HISTORY: Negative for smoking and drinking. FAMILY HISTORY: Noncontributory to her current medical condition. MEDICATIONS AT HOME: 1. Warfarin 5 milligrams a day. 2. Zocor 20 milligrams a day. 3. Cardizem CD 180 milligrams a day. 4. Valsartan 160 milligrams a day. 5. Potassium. 6. Lasix 20 milligrams a day. 7. Triamterene / hydrochlorothiazide 37.5 / 25 milligrams a day. 8. Omeprazole. 9. Letro____ 5 milligrams a day. 10. Prilosec 20 milligrams a day. 11. Insulin. 12. A multivitamin. REVIEW OF SYSTEMS: Currently the patient refers no chest pain, no chest discomfort. No fever. PHYSICAL EXAMINATION: GENERAL: Alert, fully oriented. VITAL SIGNS: Blood pressure 144/77, pulse 100, respiratory rate 18. LUNGS: Ventilated. CARDIOVASCULAR: S1-S2. Irregular. No gallop. ABDOMEN: Abdomen soft, no mass. EXTREMITIES: No edema. EKGS: Electrocardiogram shows atrial fibrillation, right bundle-branch block, left anterior fascicular block, diffuse S-T changes with a rate of around 95 to 100 beats per minute. LABS: Hemoglobin is 9.9, it was 11.2 yesterday. White blood cells 13.1. Potassium 3.6. Creatinine is 0.65. Troponin less than 0.02. INR is 1.3. ASSESSMENT AND RECOMMENDATIONS: Mrs. Mcdonough is currently stable. She is immobilized. She has a right hip fracture. She has had a previous permanent pacemaker inserted. She was very active prior to the event. At this point, there is no contraindication for hip surgery. My recommendation is to continue on current management. Cardizem is resumed. Her heart rate is a bit high. I will add some digoxin with 0.5 mg IV bolus and 0.125 mg once a day. The case was discussed with the patient. The benefits of the hip surgery outweigh the risks. It is okay for surgery. I will be available during the hospitalization. Urbano Reeves MD /JCWoody /1:28 PM /2:57 PM
[2017-07-04] MEDS ORDERED: PILL SPLITTER OTHER PRN (15:15)
[2017-07-04] MEDS: NADOLOL 20 MG TAB PO SCH (16:57)
[2017-07-04] MEDS: cefTRIAXone INJ 1,000 MG in SODIUM CHLORIDE 0.9% INJ 100 ML IV SCH (22:05)
--- NOTE | 2017-07-04 23:41 | EKG ---
Date Performed: 07/03/2017 Time Performed: 22:13:56 PTAGE: 86 years EKG: ATRIAL FIBRILLATION RIGHT BUNDLE BRANCH BLOCK LEFT ANTERIOR FASCICULAR BLOCK ST DEVIATION A ND MODERATE T-WAVE ABNORMALITY, CONSIDER LATERAL ISCHEMIA ST DEVIATION AND MODERATE T-WAVE ABNORMALIT Y, CONSIDER INFERIOR ISCHEMIA ABNORMAL ECG PREVIOUS TRACING : 05/29/2007 15.36 Compared to prior tracing, now with RBBB and ST/T wave ray ges DOCTOR: Kenneth Pepper Interpretating Date/Time 07/04/2017 23:40:37
[2017-07-05] VITALS: BP 112/43; PULSE 65; RESP 17; TEMP 97.8; O2SAT 91
[2017-07-05] MEDS: AZITHROMYCIN INJ 500 MG in SODIUM CHLOR 0.9% 250 ML INJ 250 ML IV SCH ×2 (00:02→23:33)
[2017-07-05] MEDS: MORPHINE SULFATE 2 MG/ML INJ IV PUSH PRN ×2 (01:37→10:13)
[2017-07-05 04:00] VITALS: BP 118/51; PULSE 68; RESP 18; TEMP 97.6; O2SAT 93
[2017-07-05] MEDS ORDERED: LACTATED RINGER'S 1000 ML IV PRN (04:00)
[2017-07-05] MEDS ORDERED: POVIDONE IODINE 5% (ANTISEPSIS KIT) 4 APPLICATIONS EACH NARE PRN (04:00)
[2017-07-05] MEDS ORDERED: CHLORHEXIDINE GLUCONATE 2 % 1 PACK (2 CLOTHS) TOPICAL PRN (04:00)
[2017-07-05 07:46] LABS: AUTOMATED NEUTROPHIL # 6.1 TH/MM3 (1.8-7.7); BASOPHIL % 0.4 % (0.0-2.0); EOSINOPHIL # 0.1 TH/MM3 (0-0.4); EOSINOPHIL % 0.8 % (0.0-4.0); HEMATOCRIT 26.8 % (35.0-46.0); HEMOGLOBIN 9.2 GM/DL (11.6-15.3); LYMPH % 17.5 % (9.0-44.0); LYMPHOCYTE # 1.6 TH/MM3 (1.0-4.8); MEAN CELL VOLUME 85.7 FL (80.0-100.0); MEAN CORPUSCULAR HEMOGLOBIN 29.4 PG (27.0-34.0); MEAN CORPUSCULAR HGB CONC 34.3 % (32.0-36.0); MEAN PLATELET VOLUME 8.3 FL (7.0-11.0); MONO % 12.4 % (0.0-8.0); MONOCYTE # 1.1 TH/MM3 (0-0.9); NEUT % 68.9 % (16.0-70.0); PLATELET COUNT 123 TH/MM3 (150-450); RED BLOOD COUNT 3.12 MIL/MM3 (4.00-5.30); RED CELL DISTRIBUTION WIDTH 16.2 % (11.6-17.2); WHITE BLOOD COUNT 8.9 TH/MM3 (4.0-11.0)
[2017-07-05 07:47] LABS: INTERNATIONAL NORMALIZED RATIO 1.3 RATIO; PROTHROMBIN TIME - PATIENT 13.4 SEC (9.8-11.6)
[2017-07-05 07:55] VITALS: BP 118/80; PULSE 77; RESP 17; TEMP 98.9; O2SAT 95
[2017-07-05 08:06] LABS: ALBUMIN 2.5 GM/DL (3.4-5.0); AST (GOT) 42 U/L (15-37); BICARBONATE 26.3 MEQ/L (21.0-32.0); BLOOD UREA NITROGEN 37 MG/DL (7-18); CALCIUM 7.6 MG/DL (8.5-10.1); CHLORIDE 115 MEQ/L (98-107); CREATININE 0.98 MG/DL (0.50-1.00); GLOMERULAR FILTRATION RATE 54 ML/MIN (>89); GLUCOSE,RANDOM 119 MG/DL (74-106); SODIUM (NA) 146 MEQ/L (136-145)
[2017-07-05 08:07] LABS: ALT (GPT) 28 U/L (10-53)
[2017-07-05 08:09] LABS: ALKALINE PHOSPHATASE 75 U/L (45-117); TOTAL BILIRUBIN ADULT 0.6 MG/DL (0.2-1.0); TOTAL PROTEIN 5.7 GM/DL (6.4-8.2)
[2017-07-05] MEDS: DOCUSATE SODIUM 50 MG/SENNA 8.6 MG TAB PO SCH ×2 (09:00→20:37)
[2017-07-05] MEDS: PRAVASTATIN SOD 40 MG TAB PO SCH (09:00)
[2017-07-05] MEDS: SODIUM CHLORIDE 0.9% FLUSH 10 ML FLUSH IV FLUSH SCH ×2 (09:00→20:41)
[2017-07-05] MEDS: DILTIAZEM-CD 180 MG CAP ER PO SCH (10:12)
[2017-07-05] MEDS: DIGOXIN 0.125 MG TAB PO SCH (10:12)
[2017-07-05] MEDS: NADOLOL 20 MG TAB PO SCH (10:12)
[2017-07-05] MEDS: VALSARTAN 160 MG TAB PO SCH (10:12)
--- NOTE | 2017-07-05 11:47 | HHI.PR ---
Subjective Remarks With severe headache patient wants tylenol, she is NPO for surgery will administer IV. Denies pain in her hip at this time. Has some neck pain, controlled by meds. No n/v/d/c. No change in vision. Objective Vitals Vital Signs Date Time Temp Pulse Resp B/P (MAP) Pulse Ox O2 Delivery O2 Flow Rate FiO2 07/05/17 07:55 98.9 77 17 118/80 (93) 95 07/05/17 04:00 97.6 68 18 118/51 (73) 93 07/05/17 00:00 97.8 65 17 112/43 (66) 91 07/04/17 20:00 97.8 76 17 124/74 (91) 94 07/04/17 19:39 18 07/04/17 18:00 75 07/04/17 17:51 16 07/04/17 17:00 87 07/04/17 16:00 79 07/04/17 15:15 98.2 82 18 124/51 (75) 96 07/04/17 15:00 86 07/04/17 14:00 88 07/04/17 13:00 98 07/04/17 12:00 87 I/O 07/04/17 07/04/17 07/04/17 07/05/17 07/05/17 07/05/17 07:00 15:00 23:00 07:00 15:00 23:00 Intake Total 850 ml 2460 ml 250 ml Output Total 200 ml 200 ml 200 ml Balance 650 ml 2260 ml 50 ml Intake Oral 360 ml IV Total 850 ml 2100 ml 250 ml Output Urine Total 200 ml 200 ml 200 ml # Bowel Movements 0 Result Diagram: 07/05/17 0720 07/05/17 0720 Imaging Last Impressions Chest X-Ray 07/03/17 1855 Signed Impressions: Service Date/Time: Monday, July 03, 2017 19:17 - CONCLUSION: 1. There appears to be an infiltrate in the left lower lung. Chronic interstitial changes are seen bilaterally 2. Diffuse cardiomegaly 3. Prominence of the ascending thoracic aorta. Recommend a noncontrast CT thorax on a nonemergent basis. Vasiliy Baez MD Lower Extremity CT 07/03/17 0000 Signed Impressions: Service Date/Time: Monday, July 03, 2017 19:36 - CONCLUSION: Comminuted fracture through the trochanteric region of the proximal right femur. Vasiliy Baez MD Hip and Pelvis X-Ray 07/03/17 0000 Signed Impressions: Service Date/Time: Monday, July 03, 2017 19:10 - CONCLUSION: There is oblique fracture through the trochanter region of the right femur along with a fracture involving the lesser trochanter. Vasiliy Baez MD Head CT 07/03/17 0000 Signed Impressions: Service Date/Time: Monday, July 03, 2017 19:31 - CONCLUSION: 1. No acute intracranial hemorrhage. 2. Bilateral cortical atrophy and chronic white matter changes characteristic for patient's age. Vasiliy Baez MD Femur X-Ray 07/03/17 0000 Signed Impressions: Service Date/Time: Monday, July 03, 2017 19:16 - CONCLUSION: Oblique fracture involving the trochanteric region of the proximal right femur. Vasiliy Baez MD Cervical Spine CT 07/03/17 0000 Signed Impressions: Service Date/Time: Monday, July 03, 2017 19:31 - CONCLUSION: 1. Nondisplaced fracture at the base of the dens with extension of the fracture into the left body of C2 and into the left transverse process of C2. 2. Diffuse osteopenia and degenerative changes with disc degeneration and disc space narrowing throughout the entire cervical spine. Vasiliy Baez MD Objective Remarks GENERAL: NAD, A&Ox3 HEAD: Normocephalic. NECK: Supple, trachea midline. No lymphadenopathy. EYES: No scleral icterus. No injection or drainage. CARDIOVASCULAR: Regular rate and rhythm without murmurs, gallops, or rubs. RESPIRATORY: Breath sounds equal bilaterally. No accessory muscle use. GASTROINTESTINAL: Abdomen soft, non-tender, nondistended. MUSCULOSKELETAL: No cyanosis, or edema. C-collar is in place. Limited range of motion at right hip. SKIN: Warm and dry. NEURO: No focal neurological deficits. A/P Problem List: (1) Fall ICD Code: W19.XXXA - Unspecified fall, initial encounter Status: Acute (2) Closed right hip fracture ICD Code: S72.001A - Fracture of unspecified part of neck of right femur, initial encounter for closed fracture Status: Acute (3) Cervical spine fracture ICD Code: S12.9XXA - Fracture of neck, unspecified, initial encounter Status: Acute (4) PNA (pneumonia) ICD Code: J18.9 - Pneumonia, unspecified organism (5) UTI (urinary tract infection) ICD Code: N39.0 - Urinary tract infection, site not specified (6) Dehydration ICD Code: E86.0 - Dehydration Status: Acute (7) DM (diabetes mellitus) ICD Code: E11.9 - Type 2 diabetes mellitus without complications Assessment and Plan 86-year-old female admitted secondary to falls which resulted in a C-spine fracture and right hip fracture. Pneumonia and urinary tract infection are present which may have been contributory to weakness and falls. Community acquired pneumonia Urinary tract infection Continue azithromycin Continue Rocephin Follow urine cultures Oxygen supplementation as needed Generalized weakness Likely secondary to infections Plan for physical therapy after surgical repairs Right femur fracture Surgical repair plan Ortho following Continue pain treatments as needed Bedrest for now C-spine fracture C1/C2 Neurosurgery consulted and following. Headache: wants tylenol. Give one dose IV as patient is NPO for hip surgery . Dehydration Continue IV fluids Follow renal function Diabetes mellitus type 2 Follow blood sugars Insulin sliding scale Pure diet, however NPO for now as plan for surgery DVT prophylaxis Anticoagulation On hold preop in secondary to recent trauma SCDs Discussed with the patient, family at bedside, nurse Problem Qualifiers (1) Fall: Qualified Codes: W19.XXXA - Unspecified fall, initial encounter (2) Closed right hip fracture: Qualified Codes: S72.001A - Fracture of unspecified part of neck of right femur , initial encounter for closed fracture (3) Cervical spine fracture: Qualified Codes: S12.001A - Unspecified nondisplaced fracture of first cervical vertebra, initial encounter for closed fracture Gaye Perez MD Jul 05, 2017 11:47
[2017-07-05 11:57] VITALS: BP 132/48; PULSE 63; RESP 18; TEMP 98.3; O2SAT 93
[2017-07-05] MEDS ORDERED: LIDOCAINE HCL 1% PF 5 ML SYRINGE OTHER ONE (12:00)
[2017-07-05] MEDS ORDERED: DEXAMETHASONE SOD PHOS 4 MG/ML VIAL IV ONE (12:00)
[2017-07-05] MEDS ORDERED: SODIUM CHLOR 0.9% 250 ML INJ 250 ML IV ONE (12:00)
[2017-07-05] MEDS ORDERED: NEOSTIGMINE 5 MG/5 ML SYRINGE IV PUSH ONE (12:00)
[2017-07-05] MEDS ORDERED: ROCURONIUM INJ 50 MG/5 ML SYRINGE IV PUSH ONE (12:00)
[2017-07-05] MEDS ORDERED: GLYCOPYRROLATE 1 MG/5 ML SYRINGE IV PUSH ONE (12:00)
[2017-07-05] MEDS ORDERED: ONDANSETRON HCL 4 MG/2 ML VIAL IV ONE (12:00)
[2017-07-05] MEDS ORDERED: PROPOFOL 200 MG/20 ML AMP IV ONE (12:00)
[2017-07-05] MEDS ORDERED: ACETAMINOPHEN 1000 MG/100 ML 65 ML IV ONE (12:00)
--- NOTE | 2017-07-05 12:54 | PD.ORT.PN ---
Subjective Subjective Remarks Patient resting comfortably. Does still complain of right hip and neck pain. Objective Vitals Vital Signs Date Time Temp Pulse Resp B/P (MAP) Pulse Ox O2 Delivery O2 Flow Rate FiO2 07/05/17 11:57 98.3 63 18 132/48 (76) 93 07/05/17 07:55 98.9 77 17 118/80 (93) 95 07/05/17 04:00 97.6 68 18 118/51 (73) 93 07/05/17 00:00 97.8 65 17 112/43 (66) 91 07/04/17 20:00 97.8 76 17 124/74 (91) 94 07/04/17 19:39 18 07/04/17 18:00 75 07/04/17 17:51 16 07/04/17 17:00 87 07/04/17 16:00 79 07/04/17 15:15 98.2 82 18 124/51 (75) 96 07/04/17 15:00 86 07/04/17 14:00 88 07/04/17 13:00 98 I/O 07/04/17 07/04/17 07/04/17 07/05/17 07/05/17 07/05/17 07:00 15:00 23:00 07:00 15:00 23:00 Intake Total 850 ml 2460 ml 250 ml Output Total 200 ml 200 ml 200 ml Balance 650 ml 2260 ml 50 ml Intake Oral 360 ml IV Total 850 ml 2100 ml 250 ml Output Urine Total 200 ml 200 ml 200 ml # Bowel Movements 0 Result Diagram: 07/05/17 0720 07/05/17 0720 Other Results Laboratory Tests Test 07/05/17 07:20 Prothromb Time International Ratio 1.3 RATIO Prothrombin Time 13.4 SEC (9.8-11.6) Objective Remarks Awake, alert, no acute distress. In C-collar Right lower extremity: Tenderness palpation and edema about the right hip. Neurovascularly intact distally. Negative Homans Assessment & Plan Assessment and Plan 86yo F with R intertrochanteric femur fracture Patient is nothing by mouth for surgery later today. Patient has been seen and evaluated by medicine and cardiology and felt she is medically stable for surgery. Adrianne Chavez MD Jul 05, 2017 12:54
[2017-07-05] MEDS: SODIUM CHLOR 0.9% 1000 ML INJ 1,000 ML IV SCH ×2 (13:50→23:50)
[2017-07-05 16:04] VITALS: BP 109/41; PULSE 61; RESP 17; TEMP 97.3; O2SAT 96
[2017-07-05] MEDS: INSULIN ASPART SUPPLEMENTAL SCALE SQ SCH ×2 (17:00→20:40)
[2017-07-05] MEDS ORDERED: GENTAMICIN SULFATE 80 MG/2 ML VIAL ONE ×2 (17:50)
[2017-07-05] MEDS ORDERED: VANCOMYCIN HCL 1000 MG VIAL ONE (17:59)
[2017-07-05] MEDS ORDERED: ceFAZolin INJ 1,000 MG VIAL ONE (17:59)
--- NOTE | 2017-07-05 19:01 | HHI.PR ---
cc: Adrianne Chavez MD Immediate Post Op Note Procedure Date: Jul 05, 2017 Pre Op Diagnosis: Closed right intertrochanteric femur fracture Post Op Diagnosis: Same Surgeon: Adrianne Chavez Keno Clerk(s): None Procedure: Intramedullary nail right intertrochanteric femur fracture Complications: None Specimen(s) removed: None Estimated blood loss: 100 cc Anesthesia: General Drains: None IVF Patient to: PACU Patient Condition: Good Implant/Devices: SEE IMPLANT LOG (if applicable) Date/Time of Procedure: SEE SURGICAL CARE RECORD Adrianne Chavez MD Jul 05, 2017 19:01
--- NOTE | 2017-07-05 19:04 | RADRPT ---
EXAM DATE/TIME: 07/05/2017 18:47 [place] COMPARISON: No previous studies available for comparison. INDICATIONS : Post hardware placement right hip MEDICAL HISTORY : Cardiovascular disease. Diabetes mellitus type 2. Carcinoma, breast. SURGICAL HISTORY : Pacemaker. Cholecystectomy ENCOUNTER: Subsequent ACUITY: 3 days PAIN SCORE: Non-responsive. LOCATION: Right Hip FINDINGS: 4 views are recorded digitally in the operating room using C-arm during placement of intramedullary r od with distal intercalated screw and trochanteric nail. CONCLUSION: Intraoperative images. Colt Baird MD on July 05, 2017 at 19:01 Board Certified Radiologist. This report was verified electronically.
[2017-07-05] MEDS ORDERED: Post-op Orders (for Pharmacy) XX ONE (19:15)
[2017-07-05] MEDS ORDERED: SODIUM CHLORIDE 0.9% FLUSH 10 ML FLUSH IV FLUSH PRN (19:15)
[2017-07-05] MEDS ORDERED: DO NOT ADM ANY ANTICOAGULANT DRUGS PRN (19:45)
[2017-07-05] MEDS ORDERED: *morphine SULFATE 4 MG/ML PERIprocedure ONLY ONE (20:07)
[2017-07-05] MEDS: ACETAMINOPHEN 1000 MG/100 ML 65 ML IV PRN (20:37)
[2017-07-05] MEDS: ACETAMINOPHEN 325 MG TAB PO PRN (23:30)
[2017-07-05] MEDS: cefTRIAXone INJ 1,000 MG in SODIUM CHLORIDE 0.9% INJ 100 ML IV SCH (23:31)
[2017-07-06] VITALS (7 sets, daily range): BP systolic 108–185; BP diastolic 44–62; PULSE 60–84; RESP 17–18; TEMP 96–97.7; O2SAT 92–97
[2017-07-06] MEDS: ACETAMINOPHEN 325 MG TAB PO PRN (05:06)
[2017-07-06 06:28] LABS: AUTOMATED NEUTROPHIL # 8.8 TH/MM3 (1.8-7.7); BASOPHIL % 0.1 % (0.0-2.0); HEMATOCRIT 24.7 % (35.0-46.0); HEMOGLOBIN 8.2 GM/DL (11.6-15.3); LYMPHOCYTE # 0.6 TH/MM3 (1.0-4.8); MEAN CELL VOLUME 87.7 FL (80.0-100.0); MEAN CORPUSCULAR HEMOGLOBIN 29.2 PG (27.0-34.0); MEAN CORPUSCULAR HGB CONC 33.3 % (32.0-36.0); MEAN PLATELET VOLUME 8.3 FL (7.0-11.0); MONO % 6.3 % (0.0-8.0); MONOCYTE # 0.6 TH/MM3 (0-0.9); NEUT % 87.6 % (16.0-70.0); PLATELET COUNT 130 TH/MM3 (150-450); RED BLOOD COUNT 2.81 MIL/MM3 (4.00-5.30); RED CELL DISTRIBUTION WIDTH 16.8 % (11.6-17.2)
[2017-07-06 07:03] LABS: BICARBONATE 20.6 MEQ/L (21.0-32.0); CALCIUM 6.8 MG/DL (8.5-10.1); CREATININE 1.44 MG/DL (0.50-1.00)
--- NOTE | 2017-07-06 07:23 | HHI.PR ---
Subjective Remarks The patient is in bed, family at bedside. She appears to not acute distress at this time. However she says she has pain. She is refusing narcotics however did well with tramadol. And also she is taking Tylenol as needed. Had surgery yesterday. Has no more headaches since last night. Denies chest pain or shortness of breath. Main pain is the neck. Knee pain after surgery is better controlled with current pain medications. Family and the patient with multiple questions, all answered to the best of my ability Objective Vitals Vital Signs Date Time Temp Pulse Resp B/P (MAP) Pulse Ox O2 Delivery O2 Flow Rate FiO2 07/06/17 04:08 97.7 63 18 143/54 (83) 94 07/06/17 00:04 96.6 68 18 185/62 (103) 97 07/05/17 20:00 60 18 158/68 (98) 97 Nasal Cannula 2 07/05/17 19:45 60 17 160/70 (100) 97 Nasal Cannula 2 07/05/17 19:30 98.2 60 17 137/60 (85) 100 Nasal Cannula 2 07/05/17 16:04 97.3 61 17 109/41 (63) 96 07/05/17 11:57 98.3 63 18 132/48 (76) 93 07/05/17 07:55 98.9 77 17 118/80 (93) 95 I/O 07/05/17 07/05/17 07/05/17 07/06/17 07/06/17 07/06/17 07:00 15:00 23:00 07:00 15:00 23:00 Intake Total 250 ml 65 ml 1930 ml 550 ml Output Total 200 ml 500 ml 400 ml 300 ml Balance 50 ml -435 ml 1530 ml 250 ml IV Total 250 ml 65 ml 1230 ml 550 ml Other 700 ml Output Urine Total 200 ml 500 ml 300 ml 300 ml Estimated Blood Loss 100 ml Result Diagram: 07/06/17 0527 07/05/17 0720 Imaging Last Impressions Hip X-Ray 07/05/17 0000 Signed Impressions: Service Date/Time: Wednesday, July 05, 2017 18:47 - CONCLUSION: Intraoperative images. Colt Baird MD Chest X-Ray 07/03/17 1855 Signed Impressions: Service Date/Time: Monday, July 03, 2017 19:17 - CONCLUSION: 1. There appears to be an infiltrate in the left lower lung. Chronic interstitial changes are seen bilaterally 2. Diffuse cardiomegaly 3. Prominence of the ascending thoracic aorta. Recommend a noncontrast CT thorax on a nonemergent basis. Vasiliy Baez MD Lower Extremity CT 07/03/17 0000 Signed Impressions: Service Date/Time: Monday, July 03, 2017 19:36 - CONCLUSION: Comminuted fracture through the trochanteric region of the proximal right femur. Vasiliy Baez MD Hip and Pelvis X-Ray 07/03/17 0000 Signed Impressions: Service Date/Time: Monday, July 03, 2017 19:10 - CONCLUSION: There is oblique fracture through the trochanter region of the right femur along with a fracture involving the lesser trochanter. Vasiliy Baez MD Head CT 07/03/17 0000 Signed Impressions: Service Date/Time: Monday, July 03, 2017 19:31 - CONCLUSION: 1. No acute intracranial hemorrhage. 2. Bilateral cortical atrophy and chronic white matter changes characteristic for patient's age. Vasiliy Baez MD Femur X-Ray 07/03/17 0000 Signed Impressions: Service Date/Time: Monday, July 03, 2017 19:16 - CONCLUSION: Oblique fracture involving the trochanteric region of the proximal right femur. Vasiliy Baez MD Cervical Spine CT 07/03/17 0000 Signed Impressions: Service Date/Time: Monday, July 03, 2017 19:31 - CONCLUSION: 1. Nondisplaced fracture at the base of the dens with extension of the fracture into the left body of C2 and into the left transverse process of C2. 2. Diffuse osteopenia and degenerative changes with disc degeneration and disc space narrowing throughout the entire cervical spine. Vasiliy Baez MD Objective Remarks GENERAL: NAD, A&Ox3 HEAD: Normocephalic. NECK: Supple, trachea midline. No lymphadenopathy. EYES: No scleral icterus. No injection or drainage. CARDIOVASCULAR: Regular rate and rhythm without murmurs, gallops, or rubs. RESPIRATORY: Breath sounds equal bilaterally. No accessory muscle use. GASTROINTESTINAL: Abdomen soft, non-tender, nondistended. MUSCULOSKELETAL: No cyanosis, or edema. C-collar is in place. S/p surgery right hip dressing c/d/i. SKIN: Warm and dry. NEURO: No focal neurological deficits. Procedures S/p Intramedullary nail right intertrochanteric femur fracture by Dr Chavez on A/P Problem List: (1) Fall ICD Code: W19.XXXA - Unspecified fall, initial encounter Status: Acute (2) Closed right hip fracture ICD Code: S72.001A - Fracture of unspecified part of neck of right femur, initial encounter for closed fracture Status: Acute (3) Cervical spine fracture ICD Code: S12.9XXA - Fracture of neck, unspecified, initial encounter Status: Acute (4) PNA (pneumonia) ICD Code: J18.9 - Pneumonia, unspecified organism (5) UTI (urinary tract infection) ICD Code: N39.0 - Urinary tract infection, site not specified (6) Dehydration ICD Code: E86.0 - Dehydration Status: Acute (7) DM (diabetes mellitus) ICD Code: E11.9 - Type 2 diabetes mellitus without complications Assessment and Plan 86-year-old female admitted secondary to falls which resulted in a C-spine fracture and right hip fracture. Pneumonia and urinary tract infection are present which may have been contributory to weakness and falls. Community acquired pneumonia Urinary tract infection Continue azithromycin Continue Rocephin Follow urine cultures Oxygen supplementation as needed Generalized weakness Likely secondary to infections Plan for physical therapy after surgical repairs Right femur fracture Closed right intertrochanteric femur fracture Ortho ff Dr Chavez S/p Intramedullary nail right intertrochanteric femur fracture by Dr Chavez on Ortho following Continue pain treatments as needed Bedrest for now C-spine fracture C1/C2 Neurosurgery consulted and following. Headache: wants tylenol. Give one dose IV as patient is NPO for hip surgery . Dehydration Continue IV fluids Follow renal function Diabetes mellitus type 2 Follow blood sugars Insulin sliding scale Pure diet DVT prophylaxis Anticoagulation On hold preop in secondary to recent trauma SCDs Discussed with the patient, family at bedside, nurse Restart the Coumadin when cleared by surgeon Problem Qualifiers (1) Fall: Qualified Codes: W19.XXXA - Unspecified fall, initial encounter (2) Closed right hip fracture: Qualified Codes: S72.001A - Fracture of unspecified part of neck of right femur , initial encounter for closed fracture (3) Cervical spine fracture: Qualified Codes: S12.001A - Unspecified nondisplaced fracture of first cervical vertebra, initial encounter for closed fracture Gaye Peerz MD Jul 06, 2017 07:23
[2017-07-06 07:38] LABS: CALCIUM-PROTEIN CORRECTED 7.5 MG/DL (8.5-10.1); TOTAL PROTEIN 5.7 GM/DL (6.4-8.2)
[2017-07-06] MEDS: INSULIN ASPART SUPPLEMENTAL SCALE SQ SCH ×4 (08:00→22:48)
--- NOTE | 2017-07-06 08:16 | PD.ORT.PN ---
Subjective Subjective Remarks Patient resting comfortably. Patient complains of right hip and neck pain currently. Objective Vitals Vital Signs Date Time Temp Pulse Resp B/P (MAP) Pulse Ox O2 Delivery O2 Flow Rate FiO2 07/06/17 04:08 97.7 63 18 143/54 (83) 94 07/06/17 00:04 96.6 68 18 185/62 (103) 97 07/05/17 20:00 60 18 158/68 (98) 97 Nasal Cannula 2 07/05/17 19:45 60 17 160/70 (100) 97 Nasal Cannula 2 07/05/17 19:30 98.2 60 17 137/60 (85) 100 Nasal Cannula 2 07/05/17 16:04 97.3 61 17 109/41 (63) 96 07/05/17 11:57 98.3 63 18 132/48 (76) 93 I/O 07/05/17 07/05/17 07/05/17 07/06/17 07/06/17 07/06/17 07:00 15:00 23:00 07:00 15:00 23:00 Intake Total 250 ml 65 ml 1930 ml 550 ml Output Total 200 ml 500 ml 400 ml 300 ml Balance 50 ml -435 ml 1530 ml 250 ml IV Total 250 ml 65 ml 1230 ml 550 ml Other 700 ml Output Urine Total 200 ml 500 ml 300 ml 300 ml Estimated Blood Loss 100 ml Result Diagram: 07/06/17 0527 07/06/17 0527 Objective Remarks Awake, alert, no acute distress. In C-collar Right lower extremity: Dressings in place without any significant drainage. Neurovascularly intact distally. Brisk cap refill. Negative Homans Assessment & Plan Assessment and Plan 86yo F with R intertrochanteric femur fracture, POD#1 s/p R IMN 1. Partial 50% weightbearing right lower extremity 2. Physical therapy for mobilization 3. Lovenox for DVT prophylaxis while inpatient. Plan for switch to xarelto upon discharge 4. Dressing changes starting on postop day 2 5. Discharge planning, patient will likely require placement in rehabilitation. Adrianne Chavez MD Jul 06, 2017 08:16
[2017-07-06] MEDS: VALSARTAN 160 MG TAB PO SCH (08:49)
[2017-07-06] MEDS: NADOLOL 20 MG TAB PO SCH (08:49)
[2017-07-06] MEDS: DOCUSATE SODIUM 50 MG/SENNA 8.6 MG TAB PO SCH ×2 (08:49→22:49)
[2017-07-06] MEDS: DILTIAZEM-CD 180 MG CAP ER PO SCH (08:49)
[2017-07-06] MEDS: DIGOXIN 0.125 MG TAB PO SCH (08:49)
[2017-07-06] MEDS: PRAVASTATIN SOD 40 MG TAB PO SCH (08:49)
[2017-07-06] MEDS: SODIUM CHLORIDE 0.9% FLUSH 10 ML FLUSH IV FLUSH SCH ×2 (08:53→22:50)
[2017-07-06] MEDS: ENOXAPARIN SODIUM 40 MG/0.4 ML SYRINGE SQ SCH (08:54)
[2017-07-06] MEDS: traMADol HCL 50 MG TAB PO PRN ×2 (09:35→16:16)
[2017-07-06] MEDS ORDERED: diphenhydrAMINE HCL 50 MG/ML VIAL IV PUSH PRN (11:30)
[2017-07-06] MEDS ORDERED: diphenhydrAMINE HCL 25 MG CAP PO PRN (11:30)
[2017-07-06] MEDS: ACETAMINOPHEN 1000 MG/100 ML 65 ML IV PRN (12:13)
[2017-07-06] MEDS ORDERED: CALCIUM CARBONATE 500 MG CHEWABLE TAB CHEW ONE (15:00)
[2017-07-06] MEDS ORDERED: CALCIUM GLUCONATE INJ 1 GM in SODIUM CHLORIDE 0.9% INJ 100 ML IV ONE (16:00)
[2017-07-06] MEDS: SODIUM CHLOR 0.45% 1000 ML INJ 1,000 ML IV SCH (22:46)
[2017-07-06] MEDS: AZITHROMYCIN INJ 500 MG in SODIUM CHLOR 0.9% 250 ML INJ 250 ML IV SCH (22:46)
[2017-07-06] MEDS: cefTRIAXone INJ 1,000 MG in SODIUM CHLORIDE 0.9% INJ 100 ML IV SCH (22:47)
[2017-07-06] MEDS: CALCIUM CARBONATE 500 MG CHEWABLE TAB CHEW SCH (22:47)
[2017-07-06] MEDS ORDERED: NADO20TA PO (23:25)
[2017-07-06] MEDS ORDERED: MULTI BETIC PO (23:25)
[2017-07-06] MEDS ORDERED: CALC600T4 PO (23:25)
[2017-07-07] MEDS: ACETAMINOPHEN 1000 MG/100 ML 65 ML IV PRN ×3 (00:09→11:27)
[2017-07-07] MEDS: traMADol HCL 50 MG TAB PO PRN ×2 (01:49→11:47)
[2017-07-07] MEDS: SODIUM CHLOR 0.45% 1000 ML INJ 1,000 ML IV SCH ×2 (02:40→12:45)
[2017-07-07] MEDS: ENOXAPARIN SODIUM 40 MG/0.4 ML SYRINGE SQ SCH (07:29)
[2017-07-07 08:00] VITALS: BP 126/49; PULSE 65; RESP 18; TEMP 96; O2SAT 95
[2017-07-07] MEDS: INSULIN ASPART SUPPLEMENTAL SCALE SQ SCH ×2 (08:00→11:50)
[2017-07-07 08:35] LABS: AUTOMATED NEUTROPHIL # 7.6 TH/MM3 (1.8-7.7); BASOPHIL % 0.1 % (0.0-2.0); EOSINOPHIL % 0.4 % (0.0-4.0); HEMOGLOBIN 9.2 GM/DL (11.6-15.3); LYMPH % 14.2 % (9.0-44.0); LYMPHOCYTE # 1.5 TH/MM3 (1.0-4.8); MEAN CELL VOLUME 87.1 FL (80.0-100.0); MEAN CORPUSCULAR HEMOGLOBIN 29.9 PG (27.0-34.0); MEAN CORPUSCULAR HGB CONC 34.3 % (32.0-36.0); MONO % 11.1 % (0.0-8.0); MONOCYTE # 1.1 TH/MM3 (0-0.9); NEUT % 74.2 % (16.0-70.0); PLATELET COUNT 156 TH/MM3 (150-450); RED CELL DISTRIBUTION WIDTH 16.9 % (11.6-17.2); WHITE BLOOD COUNT 10.3 TH/MM3 (4.0-11.0)
[2017-07-07] MEDS ORDERED: WARFARIN SOD 5 MG TAB PO SCH ×2 (09:00→16:00)
[2017-07-07] MEDS: PRAVASTATIN SOD 40 MG TAB PO SCH (09:00)
[2017-07-07 09:13] LABS: CALCIUM 7.3 MG/DL (8.5-10.1); CREATININE 1.08 MG/DL (0.50-1.00)
[2017-07-07 09:25] LABS: CALCIUM-PROTEIN CORRECTED 8.1 MG/DL (8.5-10.1); TOTAL PROTEIN 5.6 GM/DL (6.4-8.2)
[2017-07-07] MEDS: DOCUSATE SODIUM 50 MG/SENNA 8.6 MG TAB PO SCH (10:08)
[2017-07-07] MEDS: VALSARTAN 160 MG TAB PO SCH (10:08)
[2017-07-07] MEDS: DILTIAZEM-CD 180 MG CAP ER PO SCH (10:08)
[2017-07-07] MEDS: DIGOXIN 0.125 MG TAB PO SCH (10:08)
[2017-07-07] MEDS: CALCIUM CARBONATE 500 MG CHEWABLE TAB CHEW SCH (10:08)
[2017-07-07] MEDS: NADOLOL 20 MG TAB PO SCH (10:09)
[2017-07-07] MEDS: SODIUM CHLORIDE 0.9% FLUSH 10 ML FLUSH IV FLUSH SCH (10:10)
[2017-07-07] MEDS: ACETAMINOPHEN 325 MG TAB PO PRN (11:29)
[2017-07-07 12:00] VITALS: BP 102/48; PULSE 62; RESP 18; TEMP 96.2; O2SAT 92
[2017-07-07] MEDS ORDERED: DIGO0.12 PO (12:17)
[2017-07-07] MEDS ORDERED: TRAM50 PO (12:17)
[2017-07-07] MEDS ORDERED: ENOX60P SQ (12:17)
--- NOTE | 2017-07-07 12:18 | HHI.DS ---
Discharge Summary Admission Date Jul 03, 2017 at 21:37 Discharge Date: Jul 07, 2017 Admitting Diagnosis C1/C2 FX; R HIP FX; PNA; S/P FALL (1) Fall ICD Code: W19.XXXA - Unspecified fall, initial encounter Diagnosis: Secondary Status: Acute (2) Closed right hip fracture ICD Code: S72.001A - Fracture of unspecified part of neck of right femur, initial encounter for closed fracture Diagnosis: Principal Status: Acute (3) Cervical spine fracture ICD Code: S12.9XXA - Fracture of neck, unspecified, initial encounter Diagnosis: Principal Status: Acute (4) PNA (pneumonia) ICD Code: J18.9 - Pneumonia, unspecified organism Diagnosis: Secondary (5) UTI (urinary tract infection) ICD Code: N39.0 - Urinary tract infection, site not specified Diagnosis: Secondary (6) Dehydration ICD Code: E86.0 - Dehydration Diagnosis: Secondary Status: Acute (7) DM (diabetes mellitus) ICD Code: E11.9 - Type 2 diabetes mellitus without complications Diagnosis: Secondary Procedures S/p Intramedullary nail right intertrochanteric femur fracture by Dr Chavez on Brief History - From Admission This is an 86-year-old female with a PMH of HTN, CAD, Breast CA, AVR on Coumadin and DM who was brought to the ER by EMS after being found down in her apartment. Per pt she was standing between the couch and and table catapulted on a pair of shorts on Thursday evening (2 nights ago) when she got tangled in her shorts and fell. Reports head trauma against side table. No LOC. Immediate c/o right hip and neck pain pain following fall, pain is constant, 10/ 10, non-radiating, worse w/ movement. States she "wiggled' her way across the living room to get to her cell phone but was unable to. Neighbors went to check on her today and found her lying on the floor covered in urine. On arrival, BP 131/97, HR 107, O2 sat 97% on RA, Afebrile. W WBC 13.6. Platelets 149. BUN 25. GFR 60. CPK 246. Troponin negative. INR 1.3. UA positive for UTI. CXR with infiltrate left lower lung. CT Head with no acute findings. CT C-spine with acute nondisplaced fracture at the base of the dens with extension into left body of C2 and transverse process of C2. Dr. Palencia consulted, recommended collar, no emergent surgical intervention. Femur X-ray with oblique fracture involving trochanteric region of proximal right femur. Hip/ Pelvis X-ray with oblique fracture right femur. CT LE with comminuted fracture through trochanteric region of proximal right femur. Dr. Chavez consulted, plan is for surgical intervention. CBC/BMP: 07/07/17 0658 07/07/17 0658 Significant Findings Laboratory Tests Test 07/05/17 07:20 07/06/17 05:27 07/07/17 06:58 Red Blood Count 3.12 MIL/MM3 (4.00-5.30) 2.81 MIL/MM3 (4.00-5.30) 3.10 MIL/MM3 (4.00-5.30) Hemoglobin 9.2 GM/DL (11.6-15.3) 8.2 GM/DL (11.6-15.3) 9.2 GM/DL (11.6-15.3) Hematocrit 26.8 % (35.0-46.0) 24.7 % (35.0-46.0) 27.0 % (35.0-46.0) Platelet Count 123 TH/MM3 (150-450) 130 TH/MM3 (150-450) Monocytes (%) (Auto) 12.4 % (0.0-8.0) 11.1 % (0.0-8.0) Monocytes # (Auto) 1.1 TH/MM3 (0-0.9) 1.1 TH/MM3 (0-0.9) Prothrombin Time 13.4 SEC (9.8-11.6) Blood Urea Nitrogen 37 MG/DL (7-18) 38 MG/DL (7-18) 54 MG/DL (7-18) Random Glucose 119 MG/DL (74-106) 131 MG/DL (74-106) 126 MG/DL (74-106) Total Protein 5.7 GM/DL (6.4-8.2) 5.7 GM/DL (6.4-8.2) 5.6 GM/DL (6.4-8.2) Albumin 2.5 GM/DL (3.4-5.0) Calcium Level 7.6 MG/DL (8.5-10.1) 6.8 MG/DL (8.5-10.1) 7.3 MG/DL (8.5-10.1) Aspartate Amino Transf (AST/SGOT) 42 U/L (15-37) Sodium Level 146 MEQ/L (136-145) 146 MEQ/L (136-145) Chloride Level 115 MEQ/L (98-107) 115 MEQ/L (98-107) 113 MEQ/L (98-107) Estimat Glomerular Filtration Rate 54 ML/MIN (>89) 35 ML/MIN (>89) 48 ML/MIN (>89) Neutrophils (%) (Auto) 87.6 % (16.0-70.0) 74.2 % (16.0-70.0) Lymphocytes (%) (Auto) 6.0 % (9.0-44.0) Neutrophils # (Auto) 8.8 TH/MM3 (1.8-7.7) Lymphocytes # (Auto) 0.6 TH/MM3 (1.0-4.8) Creatinine 1.44 MG/DL (0.50-1.00) 1.08 MG/DL (0.50-1.00) Carbon Dioxide Level 20.6 MEQ/L (21.0-32.0) Protein Corrected Calcium 7.5 MG/DL (8.5-10.1) 8.1 MG/DL (8.5-10.1) Imaging Last Impressions Hip X-Ray 07/05/17 0000 Signed Impressions: Service Date/Time: Wednesday, July 05, 2017 18:47 - CONCLUSION: Intraoperative images. Colt Baird MD Chest X-Ray 07/03/17 1855 Signed Impressions: Service Date/Time: Monday, July 03, 2017 19:17 - CONCLUSION: 1. There appears to be an infiltrate in the left lower lung. Chronic interstitial changes are seen bilaterally 2. Diffuse cardiomegaly 3. Prominence of the ascending thoracic aorta. Recommend a noncontrast CT thorax on a nonemergent basis. Vasiliy Baez MD Lower Extremity CT 07/03/17 0000 Signed Impressions: Service Date/Time: Monday, July 03, 2017 19:36 - CONCLUSION: Comminuted fracture through the trochanteric region of the proximal right femur. Vasiliy Baez MD Hip and Pelvis X-Ray 07/03/17 0000 Signed Impressions: Service Date/Time: Monday, July 03, 2017 19:10 - CONCLUSION: There is oblique fracture through the trochanter region of the right femur along with a fracture involving the lesser trochanter. Vasiliy Baez MD Head CT 07/03/17 0000 Signed Impressions: Service Date/Time: Monday, July 03, 2017 19:31 - CONCLUSION: 1. No acute intracranial hemorrhage. 2. Bilateral cortical atrophy and chronic white matter changes characteristic for patient's age. Vasiliy Baez MD Femur X-Ray 07/03/17 0000 Signed Impressions: Service Date/Time: Monday, July 03, 2017 19:16 - CONCLUSION: Oblique fracture involving the trochanteric region of the proximal right femur. Vasiliy Baez MD Cervical Spine CT 07/03/17 0000 Signed Impressions: Service Date/Time: Monday, July 03, 2017 19:31 - CONCLUSION: 1. Nondisplaced fracture at the base of the dens with extension of the fracture into the left body of C2 and into the left transverse process of C2. 2. Diffuse osteopenia and degenerative changes with disc degeneration and disc space narrowing throughout the entire cervical spine. Vasiliy Baez MD PE at Discharge GENERAL: NAD, A&Ox3 HEAD: Normocephalic. NECK: Supple, trachea midline. No lymphadenopathy. EYES: No scleral icterus. No injection or drainage. CARDIOVASCULAR: Regular rate and rhythm without murmurs, gallops, or rubs. RESPIRATORY: Breath sounds equal bilaterally. No accessory muscle use. GASTROINTESTINAL: Abdomen soft, non-tender, nondistended. MUSCULOSKELETAL: No cyanosis, or edema. C-collar is in place. S/p surgery right hip dressing c/d/i. SKIN: Warm and dry. NEURO: No focal neurological deficits. Pt update on day of discharge In the chair. Patient has pain in her neck and has headache however she is not taking much of pain meds. She is refusing pain meds especially narcotics. Taking seldom tramadol. No cough. No palpitations. No n/v/d/c. Denies chest pain or sob. Hospital Course 86-year-old female admitted secondary to falls which resulted in a C-spine fracture and right hip fracture. Pneumonia and urinary tract infection are present which may have been contributory to weakness and falls. Community acquired pneumonia Urinary tract infection with Proteus mirabilis Received azithromycin Rocephin. Switch to ceftin at DC Follow urine cultures Oxygen supplementation as needed Generalized weakness Likely secondary to infections Plan for physical therapy after surgical repairs Right femur fracture Closed right intertrochanteric femur fracture Ortho ff Dr Chavez S/p Intramedullary nail right intertrochanteric femur fracture by Dr Chavez on Ortho following Continue pain treatments as needed Bedrest for now Tramadol for pain . Patient refusing most pain meds except tylenol and takes tramadol seldom. C-spine fracture C1/C2 Neurosurgery consulted and following. Medical management. Neck collar in place. Headache: wants tylenol. Dehydration Continue IV fluids Follow renal function Diabetes mellitus type 2 Follow blood sugars Insulin sliding scale A fib on coumadin. Restarted coumadin monitro INR bridge with lovenox. Monitor for bleeding. Prominence of thoracoc ascending aorta on x ray imaging, to have further imaging with non contrast CT nonemergent as OP. Precautions with anticoagulation. DVT prophylaxis Per Dr Chavez ortho can restart coumadin. SCDs Discussed with the patient, family at bedside, nurse, [facility] Restarted Coumadin. Monitor INR. Bridge with lovenox as patient with h/o afib Discharged in stable cindition to [facility] and consultants as OP . Pt Condition on Discharge: Stable Discharge Disposition: Rehab Inpatient Discharge Time: > 30 minutes Discharge Instructions DIET: Follow Instructions for: Heart Healthy Diet, Diabetic Diet, Coumadin ( Warfarin) Diet Activities you can perform: Partial Weight Bearing Other Activity Instructions: 50% weight bearin bruce surgical knee Follow up Referrals: Orthopedics - 2 Weeks with Adrianne Chavez MD PCP Follow-up - 2-3 Days New Orders: CBC WITH DIFF - Daily COMP MET PROF (CMP) - Daily PT/INR - Daily New Medications: Cefuroxime (Ceftin) 250 Mg Tab 250 MG PO BID for infection , #14 TAB Enoxaparin Inj (Lovenox Inj) 60 Mg/0.6 Ml Syr 60 MG SQ BID for Blood Clot Prevention, #60 SYRINGE 0 Refills bridge lovenox /coumadin until INR is theraeutic , DC lovenox when INR therapeutic Digoxin (Digoxin) 0.125 Mg Tab 0.125 MG PO DAILY for afib, #30 TAB Lzeczsop-Xqmrcblefe-Ysluqngmg (Triple Antibiotic 3.5-400-5000) 3.5 Mg-400 Unit-5 ,000 Unit/Gram Oin 1 APPLIC TOPICAL Q12HR for knee abration , #1 TUBE Tramadol (Ultram) 50 Mg Tab 50 MG PO Q6H PRN for pain 2-10, #30 TAB Continued Medications: B-Complex Vitamins (Vitamin B Complex) 1 Tab 1 TAB PO DAILY B-Complex W/ Folic Acid (B Complex) 1 Tab 1 TAB PO DAILY, TAB Calcium Carbonate (Calcium Carbonate) 1,500 Mg Tab 600 MG PO DAILY for Calcium Supplement, TAB 0 Refills 1,500 mg calcium carbonate (600 mg elemental calcium) Calcium Carbonate (Calcium Carbonate) 1,500 Mg Tab 600 MG PO HS for Calcium Supplement, TAB 0 Refills 1,500 mg calcium carbonate (600 mg elemental calcium) Cholecalciferol (Vitamin D-1000) 1,000 Unit Tab 2000 UNITS PO DAILY for Nutritional Supplement, #1 BOTTLE 0 Refills Diltiazem HCl (Diltiazem 24Hr ER) 180 Mg Cap.sa.24h 180 MG PO DAILY Furosemide (Lasix) 20 Mg Tab 20 MG PO DAILY, #30 TAB 0 Refills Insulin Aspart Inj (Novolog Inj) 1,000 Unit/10 Ml Vial 0 SQ DIRECTED for Blood Sugar Management, #10 ML 0 Refills Sliding Scale as directed. Insulin Detemir Inj (Levemir Inj) 1,000 unit/ 10 ML Vial 22-24 UNITS SQ HS for Blood Sugar Management, VIAL 0 Refills Do not mix with any other Insulin. Letrozole (Letrozole) 2.5 Mg Tab 2.5 MG PO HS Multiple Vitamin (Multiple Vitamin) 1 Tab 1 TAB PO DAILY for Nutritional Supplement, TAB 0 Refills Multiple Vitamins W/ Minerals (Preservision Areds) 1 Tab 1 TAB PO BID for Nutritional Supplement, TAB 0 Refills Nadolol (Nadolol) 20 Mg Tab 10 MG PO DAILY, #30 TAB 0 Refills Omeprazole Magnesium (Prilosec) 20 Mg Tab 20 MG PO DAILY Potassium Chloride ER (Potassium Chloride ER) 20 Meq Tab 20 MEQ PO DAILY for Electrolyte Replacement, #30 TAB 0 Refills Simvastatin (Simvastatin) 20 Mg Tab 20 MG PO HS for Cholesterol Management, #30 TAB 0 Refills Triamterene-Hydrochlorothiazide (Triamterene-Hydrochlorothiazide) 37.5-25 Mg Tab 1 TAB PO DAILY, #30 TAB 0 Refills Valsartan (Diovan) 160 Mg Tab 160 MG PO DAILY, #30 TAB 0 Refills Warfarin (Warfarin) 5 Mg Tab 5 MG PO DAILY for Blood Clot Prevention, #30 TAB 0 Refills [fish oil] () 1 TAB PO DAILY [Multi Betic] () 1 TAB PO DAILY Gaye Perez MD Jul 07, 2017 12:18
[2017-07-07] MEDS ORDERED: TRIPOIN TOPICAL (12:40)
[2017-07-07] MEDS ORDERED: CEFU1TAB18 PO (12:40)
[2017-07-07] MEDS ORDERED: CALCIUM GLUCONATE INJ 1 GM in SODIUM CHLORIDE 0.9% INJ 100 ML IV ONE (13:00)
[2017-07-07] MEDS ORDERED: CALCIUM CARBONATE 500 MG CHEWABLE TAB CHEW ONE (13:45)
[2017-07-07] MEDS ORDERED: NEOMYCIN/POLYMYXIN/BACITRACIN OINT 15 GM TUBE TOPICAL SCH (14:00)
[2017-07-07] MEDS ORDERED: VITA1000 PO (17:12)
[2017-07-07] MEDS ORDERED: B COTAB3 PO (17:12)
[2017-07-07] MEDS ORDERED: fish oil PO (17:12)
--- NOTE | 2017-07-08 11:19 | PD.OP ---
cc: Adrianne Chavez MD Operative Report Date of Surgery: Jul 05, 2017 Preoperative Diagnosis: Closed right intertrochanteric femur fracture Postoperative Diagnosis: same Procedure: Intramedullary nail right intertrochanteric femur fracture Anesthesia: General Surgeon: Adrianne Chavez State Archivist(s): None Operation and Findings: EBL: 100 cc Complications: None Specimens: None Indications for procedure: Patient is a 86-year-old Female Who Presented after a Trip and Fall with Right Hip Pain. Patient Was Found to Have a Right Intertrochanteric Femur Fracture. Options of management were discussed. Risks of surgery including but not limited to: Infection, nonunion or malunion, hardware malposition or failure, possible need for further surgery, neurovascular injury, and other unforeseen complications were all discussed. At this time the patient has consented to the procedure. Description of procedure: Patient was brought back to the operating room where general anesthesia then ensued. Patient was then positioned on the operating room fracture table with all bony prominences well padded. Patient was prepped and draped in standard sterile fashion. Preoperative antibiotics were given within 1 hour of incision. A timeout was performed to identify correct patient , side, site and procedure to be performed. At this time the fracture was reduced on the table with the use of traction and rotation. A small approximate 2 inch incision was made just proximal and posterior to the greater trochanter. A guidewire was then placed in the tip of the greater trochanter on the AP and lateral radiographs. This was advanced to the lesser trochanteric region. An opening reamer was then used to allow access to the femoral canal and advanced to the lesser trochanteric region. At this time an 11 mm diameter Synthes TFN nail was then placed and advanced into appropriate position on both AP and lateral radiographs. A small lateral based incision was made to allow the drill guides for the proximal screw to be placed through the subcutaneous tissue and fascia down to the lateral cortex. A guidewire was then placed in the femoral neck and into the femoral head in a center center position on AP and lateral radiographs. This was subsequently measured and drilled and then placed. This was verified to be in acceptable position on AP and lateral radiographs. The proximal locking screw was then tightened and backed off a half turn. The guides for the distal locking screw was then placed through a small lateral based incision. This was then drilled, measured and subsequently placed. Final x-rays were obtained which limited the fracture was in acceptable alignment and the hardware was in good position. The insertion handle was then removed. All wounds were thoroughly irrigated with normal saline laden with gentamicin. The subcutaneous tissue and fascia was closed with interrupted Vicryl sutures and the skin subsequently closed with nii. Sterile dressings were then applied. Patient was transferred off the operating room table and awoken from general anesthesia without complication. Disposition: Patient be partial weightbearing 50% of the right lower extremity. Adrianne Chavez MD Jul 08, 2017 11:19
== END 2017-07-07 14:47 | DRG 480 ==
LOC: NEPE 18:24 → NEDA 21:37 → HCIS 07-04 00:59 → N06B 07-04 18:17
PROVIDERS: ADMIT Hospitalist; ATTEND Hospitalist
PROC: 0QS606Z Reposition Right Upper Femur with Intramedullary Internal Fixation Device, Open Approach (ICD-10-PCS; principal; 2017-07-05 17:44)
DX: S72.141A Displaced intertrochanteric fracture of right femur, initial encounter for closed fracture (principal); J18.9 Pneumonia, unspecified organism; S12.001A Unspecified nondisplaced fracture of first cervical vertebra, initial encounter for closed fracture; S12.100A Unspecified displaced fracture of second cervical vertebra, initial encounter for closed fracture; E11.40 Type 2 diabetes mellitus with diabetic neuropathy, unspecified; I11.9 Hypertensive heart disease without heart failure; I48.91 Unspecified atrial fibrillation; I45.2 Bifascicular block; N39.0 Urinary tract infection, site not specified; E86.0 Dehydration; I25.10 Atherosclerotic heart disease of native coronary artery without angina pectoris; B96.4 Proteus (mirabilis) (morganii) as the cause of diseases classified elsewhere; W01.0XXA Fall on same level from slipping, tripping and stumbling without subsequent striking against object, initial encounter; Y92.039 Unspecified place in apartment as the place of occurrence of the external cause; Z79.01 Long term (current) use of anticoagulants; Z79.4 Long term (current) use of insulin; Z85.3 Personal history of malignant neoplasm of breast; Z88.5 Allergy status to narcotic agent; Z92.3 Personal history of irradiation; Z95.0 Presence of cardiac pacemaker; Z95.2 Presence of prosthetic heart valve
CPT/HCPCS: 51702; 70450; 71045; 72125; 73501; 73502; 73552; 73700; 76000; 80048; 80053; 81001; 82550; 82552; 82948; 83735; 84155; 84484; 85025; 85610; 85730; 87077; 87086; 87186; 93005; 94150; 96361; 96374; C1713; J0131; J0456; J0610; J0690; J0696; J1100; J1160; J1580; J1650; J1815; J2270; J2405; J2710; J3010; J3370; J7030; J7040; J7050; J7120; L0150; L0172